=== PATIENT | male | born 1960 | race Caucasian/White ===

== ENCOUNTER 2016-05-25 11:00 | Inpatient (IN) | payer MEDICARE ==
[2016-05-25] MEDS ORDERED: NITROGLYCERIN OINT 1 INCH/GM PACKET TOPICAL STA (11:13)
[2016-05-25] MEDS ORDERED: ASPIRIN 81 MG CHEW PO STA (11:13)
--- NOTE | 2016-05-25 11:16 | ED ---
General Adult HPI - General Chief complaint: Chest Pain Stated complaint: chest pain Time Seen by Provider: 05/25/16 11:02 Source: patient, EMS, RN notes reviewed Mode of arrival: EMS Limitations: no limitations - History of Present Illness Initial comments: Patient is a pleasant 55-year-old male presenting to the emergency department chest discomfort. Onset of symptoms was around an hour and a half ago. Discomfort was fairly intense however now is mild rated 3/10. Discomfort felt like pressure. There was some mild associated dyspnea and sweating. No nausea. Patient has had similar symptoms previously however not as severe. Patient does get mild symptoms frequently. Patient has seen his doctor previously and was told he has congestive heart failure. Patient has not seen a doctor recently. - Related Data Home Medications Medication Instructions Recorded Confirmed No Known Home Medications [No 09/21/13 05/25/16 Known Home Medications] Allergies Allergy/AdvReac Type Severity Reaction Status Date / Time No Known Allergies Allergy Verified 05/25/16 11:45 Review of Systems ROS Statement: Those systems with pertinent positive or pertinent negative responses have been documented in the HPI. ROS Other: All systems not noted in ROS Statement are negative. Constitutional: Denies: fever Eyes: Denies: eye pain ENT: Denies: ear pain Respiratory: Reports: dyspnea (Resolved). Denies: cough Cardiovascular: Reports: chest pain Endocrine: Denies: fatigue Gastrointestinal: Denies: abdominal pain, nausea Genitourinary: Denies: dysuria Musculoskeletal: Denies: back pain Skin: Denies: rash Neurological: Denies: weakness Past Medical History Past Medical History: Heart Failure, COPD History of Any Multi-Drug Resistant Organisms: None Reported Past Surgical History: No Surgical Hx Reported Past Psychological History: No Psychological Hx Reported Smoking Status: Former smoker Past Alcohol Use History: None Reported Past Drug Use History: None Reported General Exam Limitations: no limitations General appearance: alert, obese Head exam: Present: atraumatic Eye exam: Present: normal appearance, PERRL ENT exam: Present: normal oropharynx Neck exam: Present: normal inspection Respiratory exam: Present: normal lung sounds bilaterally. Absent: chest wall tenderness Cardiovascular Exam: Present: regular rate, normal rhythm Expanded Peripheral pulses: 2+: Radial (R), Radial (L), Dorsalis Pedis (R), Dorsalis Pedis (L) GI/Abdominal exam: Present: soft. Absent: tenderness Extremities exam: Present: normal inspection. Absent: pedal edema, calf tenderness Neurological exam: Present: alert Psychiatric exam: Present: normal affect, normal mood Skin exam: Absent: rash Course Vital Signs 05/25/16 05/25/16 11:02 11:32 Temperature 97.1 F L Pulse Rate 79 73 Respiratory 20 18 Rate Blood Pressure 147/75 152/88 O2 Sat by Pulse 98 99 Oximetry EKG Findings - EKG Comments: EKG Findings:: Normal sinus rhythm at 74. MN 160. QRS 88. QT 402. QTC 446. Normal axis. Normal QRS. Normal ST-T. Medical Decision Making - Medical Decision Making Patient reexamined and resting comfortably in bed. Patient and family updated on results and plan. Case was discussed in detail with Dr. Pickens, who will admit for hospital call. Admission orders written. Cardiology consult placed. IV heparin started. - Lab Data Result diagrams: 05/25/16 11:06 05/25/16 11:06 Lab Results 05/25/16 05/25/16 05/25/16 Range/Units 11:06 11:06 11:06 WBC 7.8 (3.8-10.6) k/uL RBC 4.74 (4.30-5.90) m/uL Hgb 14.6 (13.0-17.5) gm/dL Hct 43.5 (39.0-53.0) % MCV 91.6 (80.0-100.0) fL MCH 30.8 (25.0-35.0) pg MCHC 33.6 (31.0-37.0) g/dL RDW 13.5 (11.5-15.5) % Plt Count 289 (150-450) k/uL Neutrophils % 42 % Lymphocytes % 44 % Monocytes % 6 % Eosinophils % 3 % Basophils % 1 % Neutrophils # 3.3 (1.3-7.7) k/uL Lymphocytes # 3.4 (1.0-4.8) k/uL Monocytes # 0.5 (0-1.0) k/uL Eosinophils # 0.2 (0-0.7) k/uL Basophils # 0.1 (0-0.2) k/uL PT (9.0-12.0) sec INR (<1.1) APTT (22.0-30.0) sec Sodium 138 (137-145) mmol/L Potassium 4.7 (3.5-5.1) mmol/L Chloride 105 (98-107) mmol/L Carbon Dioxide 24 (22-30) mmol/L Anion Gap 9 mmol/L BUN 16 (9-20) mg/dL Creatinine 0.75 (0.66-1.25) mg/dL Est GFR (MDRD) Af Amer >60 (>60 ml/min/1.73 sqM) Est GFR (MDRD) Non-Af >60 (>60 ml/min/1.73 sqM) Glucose 107 H (74-99) mg/dL Calcium 9.0 (8.4-10.2) mg/dL Magnesium 2.2 (1.6-2.3) mg/dL Total Bilirubin 0.6 (0.2-1.3) mg/dL AST 17 (17-59) U/L ALT 30 (21-72) U/L Alkaline Phosphatase 64 (38-126) U/L Total Creatine Kinase 479 H (55-170) U/L CK-MB (CK-2) 5.3 H* (0.0-2.4) ng/mL CK-MB (CK-2) Rel Index 1.1 Troponin I <0.012 (0.000-0.034) ng/mL NT-Pro-B Natriuret Pep pg/mL Total Protein 6.8 (6.3-8.2) g/dL Albumin 3.6 (3.5-5.0) g/dL 05/25/16 05/25/16 Range/Units 11:06 11:06 WBC (3.8-10.6) k/uL RBC (4.30-5.90) m/uL Hgb (13.0-17.5) gm/dL Hct (39.0-53.0) % MCV (80.0-100.0) fL MCH (25.0-35.0) pg MCHC (31.0-37.0) g/dL RDW (11.5-15.5) % Plt Count (150-450) k/uL Neutrophils % % Lymphocytes % % Monocytes % % Eosinophils % % Basophils % % Neutrophils # (1.3-7.7) k/uL Lymphocytes # (1.0-4.8) k/uL Monocytes # (0-1.0) k/uL Eosinophils # (0-0.7) k/uL Basophils # (0-0.2) k/uL PT 10.2 (9.0-12.0) sec INR 1.0 (<1.1) APTT 23.7 (22.0-30.0) sec Sodium (137-145) mmol/L Potassium (3.5-5.1) mmol/L Chloride (98-107) mmol/L Carbon Dioxide (22-30) mmol/L Anion Gap mmol/L BUN (9-20) mg/dL Creatinine (0.66-1.25) mg/dL Est GFR (MDRD) Af Amer (>60 ml/min/1.73 sqM) Est GFR (MDRD) Non-Af (>60 ml/min/1.73 sqM) Glucose (74-99) mg/dL Calcium (8.4-10.2) mg/dL Magnesium (1.6-2.3) mg/dL Total Bilirubin (0.2-1.3) mg/dL AST (17-59) U/L ALT (21-72) U/L Alkaline Phosphatase (38-126) U/L Total Creatine Kinase (55-170) U/L CK-MB (CK-2) (0.0-2.4) ng/mL CK-MB (CK-2) Rel Index Troponin I (0.000-0.034) ng/mL NT-Pro-B Natriuret Pep 21 pg/mL Total Protein (6.3-8.2) g/dL Albumin (3.5-5.0) g/dL - Radiology Data Radiology results: image reviewed (Chest x-ray shows no acute process) Critical Care Time Critical Care Time: Yes Total Critical Care Time: 31 Disposition Clinical Impression: Unstable angina pectoris Disposition: ADMITTED IP TO THIS [facility] Condition: Serious
[2016-05-25 11:28] LABS: Basophils # (A) 0.1 k/uL (0-0.2); Basophils % (A) 1 %; Eosinophils # (A) 0.2 k/uL (0-0.7); Eosinophils % (A) 3 %; HCT 43.5 % (39.0-53.0); HDW 2.34; HGB 14.6 gm/dL (13.0-17.5); Luc # (Auto) 0.27; Luc % (Auto) 3; Lymphocytes # (A) 3.4 k/uL (1.0-4.8); Lymphocytes % (A) 44 %; MCH 30.8 pg (25.0-35.0); MCHC 33.6 g/dL (31.0-37.0); MCV 91.6 fL (80.0-100.0); Mean Platelet Volume 6.9; Monocytes # (A) 0.5 k/uL (0-1.0); Monocytes % (A) 6 %; Neutrophils # (A) 3.3 k/uL (1.3-7.7); Neutrophils % (A) 42 %; RBC 4.74 m/uL (4.30-5.90); RDW 13.5 % (11.5-15.5); WBC 7.8 k/uL (3.8-10.6)
--- NOTE | 2016-05-25 11:32 | XR ---
EXAMINATION TYPE: XR chest 2V DATE OF EXAM: 05/25/2016 11:25 AM COMPARISON: Prior chest x-ray 15 March 2013 HISTORY: Chest pain, shortness of breath, congestive heart failure TECHNIQUE: Frontal and lateral views of the chest are obtained. FINDINGS: There is no focal air space opacity, pleural effusion, or pneumothorax seen. The cardiac silhouette size is within normal limits. There are overlying cardiac leads. Patient is rotated. Line ar focus of increased attenuation is stable in the substernal location compatible with scar. The osse ous structures are intact. IMPRESSION: No acute cardiopulmonary process.
[2016-05-25 11:40] LABS: Partial Thromboplastin Time 23.7 sec (22.0-30.0); Prothrombin Time 10.2 sec (9.0-12.0)
[2016-05-25 11:42] LABS: ALT 30 U/L (21-72); AST 17 U/L (17-59); Alkaline Phosphatase 64 U/L (38-126); Anion Gap 9 mmol/L; Blood Urea Nitrogen 16 mg/dL (9-20); Carbon Dioxide 24 mmol/L (22-30); Chloride 105 mmol/L (98-107); Glucose 107 mg/dL (74-99); Magnesium 2.2 mg/dL (1.6-2.3); Non-African American GFR(MDRD) >60 (>60 ml/min/1.73 sqM); Potassium 4.7 mmol/L (3.5-5.1); Sodium 138 mmol/L (137-145); Total Bilirubin 0.6 mg/dL (0.2-1.3); Total Protein 6.8 g/dL (6.3-8.2)
[2016-05-25 11:52] LABS: Creatine Kinase 479 U/L (55-170)
[2016-05-25 12:06] LABS: Troponin I <0.012 ng/mL (0.000-0.034)
[2016-05-25 12:13] LABS: Creatine Kinase MB 5.3 ng/mL (0.0-2.4)
[2016-05-25] MEDS ORDERED: HEPARIN SODIUM,PORCINE 5,000 UNIT/ML 1 ML VIAL IV ONE (12:34)
[2016-05-25] MEDS ORDERED: NITROGLYCERIN SL TABS 0.4 MG TAB SUBLINGUAL PRN (12:34)
[2016-05-25] MEDS ORDERED: HEPARIN SODIUM,PORCINE/D5W PMX 25,000 UNIT in DEXTROSE/WATER 1 500ML.BAG IV SCH (12:45)
[2016-05-25] MEDS: NITROGLYCERIN OINT 1 INCH/GM PACKET TOPICAL SCH (18:27)
[2016-05-25 18:46] LABS: Creatine Kinase 392 U/L (55-170)
[2016-05-25 19:00] LABS: Troponin I <0.012 ng/mL (0.000-0.034)
[2016-05-25 19:01] LABS: Creatine Kinase MB 4.4 ng/mL (0.0-2.4)
[2016-05-25] MEDS: HEPARIN SODIUM,PORCINE 5,000 UNIT/ML 1 ML VIAL IV PRN (19:57)
[2016-05-25] MEDS ORDERED: ACETAMINOPHEN TAB 325 MG TAB PO PRN (20:54)
[2016-05-26 01:56] LABS: Creatine Kinase 290 U/L (55-170)
[2016-05-26 02:07] LABS: Troponin I <0.012 ng/mL (0.000-0.034)
[2016-05-26 02:12] LABS: Creatine Kinase MB 3.9 ng/mL (0.0-2.4)
[2016-05-26] MEDS: HEPARIN SODIUM,PORCINE 5,000 UNIT/ML 1 ML VIAL IV PRN (02:28)
[2016-05-26] MEDS: NITROGLYCERIN OINT 1 INCH/GM PACKET TOPICAL SCH ×2 (03:30→05:52)
[2016-05-26 08:37] LABS: Mean Platelet Volume 7.1
[2016-05-26] MEDS ORDERED: ASPIRIN 325 MG TAB PO SCH (09:00)
--- NOTE | 2016-05-26 09:52 | CONS ---
DATE OF CONSULTATION: Mr. Quinn Ponce is a 55-year-old gentleman who states that he is disabled. He was playing on his phone when he started having chest discomfort. This is a left-sided chest discomfort. No tenderness in his chest wall. Nonradiating. No other associated symptoms. He may have had a viral infection recently. His cardiac enzymes and abnormal. CPKs are elevated, but troponins are completely normal. REVIEW OF SYSTEMS: No fever, chills, rigors. No cough or expectoration. No nausea, vomiting or no diarrhea. No hematuria, dysuria. No strokes or seizures. No skin lesions or musculoskeletal complaints. PAST MEDICAL HISTORY: He was told he had fluid around his heart. I am not sure where this information came from. He is not on any home medications. He does not have diabetes, does not have hypertension. Does not know his lipid panel. He does have morbid obesity and he states he has COPD. ALLERGIES: No known drug allergies. MEDICATIONS: None. On examination, his blood pressure is 141/92 mmHg, 146/85 mmHg. He is afebrile 98.1 degrees Fahrenheit, pulse rate 87 beats per minute, respirations normal. Head and neck examination is normal. Heart sounds S1, S2 normal. No murmurs or gallops. Abdomen is soft, nontender. Breath sounds are reduced bilaterally with no rhonchi. No crackles. Extremities are warm. No edema. EKGs were reviewed and shows normal sinus rhythm, normal cardiac intervals. IMPRESSION: 1. Atypical chest discomfort with elevated CPKs and normal troponin, normal 12-lead ECG. No evidence for acute myocardial infarction. 2. Morbid obesity. 3. Lipid panel not known at this time. 4. Blood pressure is mildly elevated, but he denies any history of hypertension. I do not see left ventricle hypertrophy on 12-lead ECG either. SUGGEST: From a cardiac standpoint, he can go home today and he will have work-up as an outpatient. His BNP is completely normal. Labs are reviewed. Hemoglobin is 14.6. Electrolytes are normal. Renal function is normal. Liver function is normal. CPKs are 479, 392, and 290. He denies alcohol use. He says he has been drinking adequate amount of fluids regularly. He was not in a very hot or heat environment. He may have had a viral infection. He is not on any medications that could cause myopathy. BNP is 21. Troponins are normal x3. Outpatient follow-up and he will go home today.
[2016-05-26 12:23] VITALS: BP 167/79; PULSE 86; RESP 18; TEMP 98.5
--- NOTE | 2016-05-26 13:52 | HP ---
DATE OF ADMISSION: Patient is a pleasant 55-year-old gentleman morbidly obese, came in with complaints of chest pain, nonexertional in nature, not associated with food. It lasted for about 1-1/2 and improved with aspirin, about 3 to 4/10 in severity, nonradiating the retrosternal area. I am not sure whether it is pressure like or sharp in nature, not sure whether it is related to food but patient did eat a few minutes before that. Patient denied any diaphoresis, nausea or shortness of breath. Patient's chest pain is nonpleuritic in nature, which completely resolved at this point of time. Patient may either have musculoskeletal chest and gastroesophageal reflux disease. I asked him if he has the chest pain again, I asked him to try proton pump inhibitor 20 mg daily before breakfast for about 14 days. ROS: All others systems were reviewed and were negative. HOME MEDICATIONS: None. ALLERGIES: No known drug allergies. PAST MEDICAL HISTORY: Significant for morbid obesity, history of chronic obstructive pulmonary disease, which is questionable. SOCIAL HISTORY: Former smoker. Denied any alcohol abuse or any drug abuse. FAMILY HISTORY: Significant for hypertension in the family. PHYSICAL EXAMINATION: Temperature 98.5, pulse 76, respiratory rate 18, blood pressure 167/79, saturating at 96% on room air. GENERAL: Morbidly obese, alert and oriented x3. HEENT: Pupils are round and equally reacting to light. EOMI. No scleral icterus. No conjunctival pallor. Normocephalic, atraumatic. No pharyngeal erythema. No thyromegaly. CARDIOVASCULAR: S1 and S2 present. No murmurs, rubs, or gallops. PULMONARY: Chest is clear to auscultation, no wheezing or crackles. ABDOMEN: Soft, nontender, nondistended, normoactive bowel sounds. No palpable organomegaly. MUSCULOSKELETAL: No joint swelling or deformity. EXTREMITIES: No cyanosis, clubbing, or pedal edema. NEUROLOGICAL: Gross neurological examination did not reveal any focal deficits. SKIN: No rashes. LABORATORY DATA: CBC, CMP, essentially within normal limits. EKG did not show any acute ST-T wave changes. Troponins are negative. LDL is 97. Chest x-ray did not show any acute abnormality. ASSESSMENT AND PLAN: 1. Chest pain appears to be atypical either musculoskeletal or gastroesophageal reflux. Management as mentioned above. Patient was evaluated by cardiology and patient was ruled out acute coronary artery syndrome and unstable angina. Patient is cleared for discharge from cardiology perspective. 2. Morbid obesity. Counseling was provided. Patient will benefit from sleep study. 3. History of chronic obstructive pulmonary disease, not in acute exacerbation. Patient will be discharged today. The patient will follow with his primary care physician in [address] Tavon German in 4 weeks. Activity as tolerated. Cardiac and low calorie diet. MTDD
== END 2016-05-26 12:22 | disposition home or self-care (01) | DRG 392 ==
LOC: EC 11:00 → 3OBS 12:33 → 3SUR 18:30 → OBSVTOIN 05-26 11:20
PROVIDERS: ADMIT Internal Medicine; ATTEND Internal Medicine
DX: K21.9 Gastro-esophageal reflux disease without esophagitis (principal); E66.01 Morbid (severe) obesity due to excess calories; J44.9 Chronic obstructive pulmonary disease, unspecified; R07.89 Other chest pain; Z68.43 Body mass index [BMI] 50.0-59.9, adult; Z87.891 Personal history of nicotine dependence; Z82.49 Family history of ischemic heart disease and other diseases of the circulatory system
CPT/HCPCS: 36415; 71020; 80053; 80061; 82550; 82553; 83735; 83880; 84443; 84484; 85025; 85049; 85610; 85730; 93005; 96365; 96366; 96374; 96376; 99291

== ENCOUNTER 2016-12-02 15:16 | Emergency (ER) | payer MEDICARE ==
--- NOTE | 2016-12-02 15:38 | XR ---
EXAMINATION TYPE: XR ankle complete LT DATE OF EXAM: 12/02/2016 CLINICAL HISTORY: Pain after stepping injury one week ago. TECHNIQUE: Frontal, lateral and oblique images of the left ankle are obtained. COMPARISON: None. FINDINGS: There is no acute fracture/dislocation evident in the left ankle. The ankle mortise appea rs within normal limits. There is small superior calcaneal spur. There is ossification near plantar fascia origin past small inferior calcaneal spur. The overlying soft tissue appears unremarkable. IMPRESSION: There is no acute fracture or dislocation in the left ankle.
--- NOTE | 2016-12-02 15:40 | ED ---
Lower Extremity Injury HPI - General Chief Complaint: Extremity Injury, Lower Stated Complaint: Ankle Injury Time Seen by Provider: 12/02/16 15:25 Source: patient, RN notes reviewed Mode of arrival: ambulatory Limitations: physical limitation - History of Present Illness Initial Comments: This is a 56-year-old male who presents to emergency department with chief complaint of left ankle injury. Patient states that on Friday evening he was stepping off of his porch when he heard a "pop" in his left ankle. Patient states that initially he experienced no pain. However, yesterday he states pain developed in his left ankle. He states the pain interferes with ambulation and is described as sharp. He states his current pain is 7/10. Patient states pain is localized to lateral aspect of ankle and is made worse with flexion and inversion. He denies any other injury or trauma. Denies fever, chills, chest pain, shortness of breath, abdominal pain, nausea or vomiting, constipation or diarrhea, dysuria or hematuria, numbness or tingling, headache or vision changes. - Related Data Home Medications Medication Instructions Recorded Confirmed No Known Home Medications [No 09/21/13 05/25/16 Known Home Medications] Allergies Allergy/AdvReac Type Severity Reaction Status Date / Time No Known Allergies Allergy Verified 12/02/16 15:28 Review of Systems ROS Statement: Those systems with pertinent positive or pertinent negative responses have been documented in the HPI. ROS Other: All systems not noted in ROS Statement are negative. Past Medical History Past Medical History: Heart Failure, COPD History of Any Multi-Drug Resistant Organisms: None Reported Past Surgical History: No Surgical Hx Reported Past Psychological History: No Psychological Hx Reported Smoking Status: Former smoker Past Alcohol Use History: None Reported Past Drug Use History: None Reported General Exam - General Exam Comments Initial Comments: General: Awake and alert, well-developed; in no apparent distress. is at bedside. HEENT: Head atraumatic, normocephalic. Pupils are equal, round and reactive to light. Extraocular movements intact. Neck: Supple. Normal ROM. Cardiovascular: Regular rate and rhythm. No murmurs, rubs or gallops. Chest symmetrical. Respiratory: Lungs clear to auscultation bilaterally. No wheezes, rales or rhonchi. Normal respiratory effort with no use of accessory muscles. Musculoskeletal: Tenderness on palpation of lateral aspect of left ankle. No bony tenderness of lateral malleolus. Mild ankle swelling. Normal ROM of ankle, however pain is elicited with dorsiflexion and inversion. Sensation is intact. Pedal pulses 2+ equal and palpable bilaterally. Skin: [place], warm and dry without rashes or lesions. Neurological: Alert and oriented x3. CN II-XII grossly intact. Speech is fluent and answers are appropriate. No focal neuro deficits. Psychiatric: Normal mood and affect. No overt signs of depression or anxiety noted. Limitations: physical limitation Course Vital Signs 12/02/16 15:26 Temperature 98.6 F Pulse Rate 89 Respiratory 18 Rate Blood Pressure 139/90 O2 Sat by Pulse 98 Oximetry Medical Decision Making - Medical Decision Making This is a 56-year-old male with chief complaint of left ankle injury. X-ray reveals no acute abnormalities including fracture or dislocation. Patient likely suffering from an ankle sprain. Findings discussed with patient who opts to have an ALTAGRACIA bandage placed for added support. Neurovascular intact. Patient is in no acute distress. He will be discharged home with contact information for follow up with Ortho as needed. Recommended rest, ice and elevation. He is in agreement to the plan and voices understanding. All questions were answered. - Radiology Data Radiology results: report reviewed Left ankle x-ray findings: There is no acute fracture/dislocation evident in the left ankle. Ankle mortise appears within normal limits. There is small superior calcaneal spur. There is ossification near plantar fascia origin past small inferior calcaneal spur. Overlying soft tissue appears unremarkable. Disposition Clinical Impression: Ankle sprain and strain Disposition: HOME SELF-CARE Condition: Good Instructions: Ankle Sprain (ED) Additional Instructions: Please follow-up with orthopedics, Dr. Díaz if no improvement in 1 week. Please take Ibuprofen 600mg q6 hours as needed for pain and inflammation. Please follow up with primary care provider within 1-2 days. Return to emergency department if symptoms should worsen or any concerns arise. Referrals: None,Stated [Primary Care Provider] - 1-2 days Geovanni Díaz MD [STAFF PHYSICIAN] - 1-2 days Time of Disposition: 15:51
[2016-12-02 15:51] VITALS: BP 139/90; PULSE 89; RESP 18; TEMP 98.6
== END 2016-12-02 15:57 | disposition home or self-care (01) ==
LOC: EC 15:16
DX: S93.402A Sprain of unspecified ligament of left ankle, initial encounter (principal); M77.32 Calcaneal spur, left foot; Z87.891 Personal history of nicotine dependence; X50.9XXA Other and unspecified overexertion or strenuous movements or postures, initial encounter
CPT/HCPCS: 99283

== ENCOUNTER 2017-03-17 19:42 | Emergency (ER) | payer MEDICARE, OTHER ==
--- NOTE | 2017-03-17 21:11 | XR ---
EXAMINATION TYPE: XR lumbar spine 2 or 3V DATE OF EXAM: 03/17/2017 CLINICAL HISTORY: Nontraumatic low back pain TECHNIQUE: Frontal and lateral views of the lumbar spine were obtained. COMPARISON: None FINDINGS: There are 5 lumbar type vertebral bodies identified. The lumbar spine shows satisfactory alignment without evidence of acute fracture or dislocation. Vertebral body heights and disk space he ights are within normal limits. Mild multilevel degenerative changes are seen as facet arthropathy th roughout the lower lumbar spine and small anterior osteophytes. The overlying soft tissue appears un remarkable. IMPRESSION: No acute fracture or malalignment is seen in the lumbar spine. Mild multilevel degenerat danyel changes of the lumbar spine. Findings are most exaggerated at the lumbosacral junction.
--- NOTE | 2017-03-17 21:45 | ED ---
General Adult HPI - General Chief complaint: Back Pain/Injury Stated complaint: lower back pain Time Seen by Provider: 03/17/17 21:18 Source: patient, family, RN notes reviewed Mode of arrival: ambulatory Limitations: no limitations - History of Present Illness Initial comments: 56 yo male presents to the ER with cc of of left-sided back pain. Patient states that this started about 3 weeks ago after he went to move symptoms still this. Patient states the pain continues. Worse to movement or twisting. Patient has also noticed some increased thirst and increased urination as well. He states is not currently follow-up with her doctor. He denies any fever chills with this any cough cold. He denies any loss by bladder function. He states that he has no other injuries the fact that he is aware of.Patient denies any recent fever, chills, shortness of breath, chest pain, abdominal pain , nausea vomiting, numbness or tingling, dysuria or hematuria, constipation or diarrhea, headaches or visual changes, or any other current symptoms. - Related Data Previous Rx's Medication Instructions Recorded Ibuprofen [Motrin] 600 mg PO Q6HR PRN #20 tab 03/17/17 Orphenadrine [Norflex] 100 mg PO Q12H #10 tablet.er 03/17/17 Allergies Allergy/AdvReac Type Severity Reaction Status Date / Time No Known Allergies Allergy Verified 03/17/17 21:31 Review of Systems ROS Statement: Those systems with pertinent positive or pertinent negative responses have been documented in the HPI. ROS Other: All systems not noted in ROS Statement are negative. Past Medical History Past Medical History: Heart Failure, COPD History of Any Multi-Drug Resistant Organisms: None Reported Past Surgical History: No Surgical Hx Reported Past Psychological History: No Psychological Hx Reported Smoking Status: Former smoker Past Alcohol Use History: None Reported Past Drug Use History: None Reported General Exam Limitations: no limitations General appearance: alert, in no apparent distress ENT exam: Present: normal exam, mucous membranes moist Neck exam: Present: normal inspection. Absent: tenderness, meningismus, lymphadenopathy Respiratory exam: Present: normal lung sounds bilaterally. Absent: respiratory distress, wheezes, rales, rhonchi, stridor Cardiovascular Exam: Present: regular rate, normal rhythm, normal heart sounds. Absent: systolic murmur, diastolic murmur, rubs, gallop, clicks Extremities exam: Present: normal inspection, full ROM, normal capillary refill. Absent: tenderness, pedal edema, joint swelling, calf tenderness Back exam: Present: normal inspection, full ROM, tenderness (left paraSpinal region), muscle spasm (left paraSpinal). Absent: rash noted Neurological exam: Present: alert, oriented X3 Psychiatric exam: Present: normal affect, normal mood Skin exam: Present: warm, dry, intact, normal color. Absent: rash Course Vital Signs 03/17/17 20:27 Temperature 97.2 F L Pulse Rate 92 Respiratory 18 Rate Blood Pressure 148/81 O2 Sat by Pulse 99 Oximetry Medical Decision Making - Medical Decision Making 56-year-old male presents emergency department with a chief complaint of left sided back pain after lifting type injury. This time x-rays reviewed and negative. Patient was found have some hematuria at this time we did discuss that he needs follow-up with his doctor regarding this predicament doctor in the area as well as urology. Other than that patient's back pain is most likely due to a lumbar muscle strain. This time we discussed we'll put him on Motrin and muscle relaxers for home. We did discuss close follow-up with his doctor we discussed return for hours all questions. Patient stated he understood he is given this plan. He'll be discharged. - Lab Data Result diagrams: 03/17/17 22:10 03/17/17 22:10 Lab Results 03/17/17 03/17/17 03/17/17 Range/Units 21:45 21:51 22:10 WBC 12.4 H (3.8-10.6) k/uL RBC 4.52 (4.30-5.90) m/uL Hgb 13.7 (13.0-17.5) gm/dL Hct 40.7 (39.0-53.0) % MCV 90.0 (80.0-100.0) fL MCH 30.3 (25.0-35.0) pg MCHC 33.6 (31.0-37.0) g/dL RDW 13.5 (11.5-15.5) % Plt Count 319 (150-450) k/uL Neutrophils % 55 % Lymphocytes % 32 % Monocytes % 6 % Eosinophils % 4 % Basophils % 1 % Neutrophils # 6.9 (1.3-7.7) k/uL Lymphocytes # 4.0 (1.0-4.8) k/uL Monocytes # 0.7 (0-1.0) k/uL Eosinophils # 0.4 (0-0.7) k/uL Basophils # 0.1 (0-0.2) k/uL Sodium (137-145) mmol/L Potassium (3.5-5.1) mmol/L Chloride (98-107) mmol/L Carbon Dioxide (22-30) mmol/L Anion Gap mmol/L BUN (9-20) mg/dL Creatinine (0.66-1.25) mg/dL Est GFR (MDRD) Af Amer (>60 ml/min/1.73 sqM) Est GFR (MDRD) Non-Af (>60 ml/min/1.73 sqM) Glucose (74-99) mg/dL POC Glucose (mg/dL) 90 (75-99) mg/dL POC Glu Pow[employer] ID Tyrone Mondragon Calcium (8.4-10.2) mg/dL Total Bilirubin (0.2-1.3) mg/dL AST (17-59) U/L ALT (21-72) U/L Alkaline Phosphatase (38-126) U/L Total Protein (6.3-8.2) g/dL Albumin (3.5-5.0) g/dL Urine Color Yellow Urine Appearance Clear (Clear) Urine pH 5.0 (5.0-8.0) Ur Specific [place] 1.017 (1.001-1.035) Urine Protein Negative (Negative) Urine Glucose (UA) Negative (Negative) Urine Ketones Negative (Negative) Urine Blood Moderate H (Negative) Urine Nitrite Negative (Negative) Urine Bilirubin Negative (Negative) Urine Urobilinogen <2.0 (<2.0) mg/dL Ur Leukocyte Esterase Negative (Negative) Urine RBC 6 H (0-5) /hpf Urine WBC 1 (0-5) /hpf Ur Squamous Epith Cells <1 (0-4) /hpf Urine Mucus Occasional H (None) /hpf 03/17/17 Range/Units 22:10 WBC (3.8-10.6) k/uL RBC (4.30-5.90) m/uL Hgb (13.0-17.5) gm/dL Hct (39.0-53.0) % MCV (80.0-100.0) fL MCH (25.0-35.0) pg MCHC (31.0-37.0) g/dL RDW (11.5-15.5) % Plt Count (150-450) k/uL Neutrophils % % Lymphocytes % % Monocytes % % Eosinophils % % Basophils % % Neutrophils # (1.3-7.7) k/uL Lymphocytes # (1.0-4.8) k/uL Monocytes # (0-1.0) k/uL Eosinophils # (0-0.7) k/uL Basophils # (0-0.2) k/uL Sodium 139 (137-145) mmol/L Potassium 4.2 (3.5-5.1) mmol/L Chloride 105 (98-107) mmol/L Carbon Dioxide 25 (22-30) mmol/L Anion Gap 9 mmol/L BUN 15 (9-20) mg/dL Creatinine 0.72 (0.66-1.25) mg/dL Est GFR (MDRD) Af Amer >60 (>60 ml/min/1.73 sqM) Est GFR (MDRD) Non-Af >60 (>60 ml/min/1.73 sqM) Glucose 92 (74-99) mg/dL POC Glucose (mg/dL) (75-99) mg/dL POC Glu [employer] Leader ID Calcium 9.1 (8.4-10.2) mg/dL Total Bilirubin 0.3 (0.2-1.3) mg/dL AST 20 (17-59) U/L ALT 26 (21-72) U/L Alkaline Phosphatase 82 (38-126) U/L Total Protein 6.5 (6.3-8.2) g/dL Albumin 3.6 (3.5-5.0) g/dL Urine Color Urine Appearance (Clear) Urine pH (5.0-8.0) Ur Specific [place] (1.001-1.035) Urine Protein (Negative) Urine Glucose (UA) (Negative) Urine Ketones (Negative) Urine Blood (Negative) Urine Nitrite (Negative) Urine Bilirubin (Negative) Urine Urobilinogen (<2.0) mg/dL Ur Leukocyte Esterase (Negative) Urine RBC (0-5) /hpf Urine WBC (0-5) /hpf Ur Squamous Epith Cells (0-4) /hpf Urine Mucus (None) /hpf - Radiology Data Radiology results: report reviewed, image reviewed Disposition Clinical Impression: Renal cyst, Strain of lumbar region, Hematuria Disposition: HOME SELF-CARE Condition: Stable Instructions: Acute Low Back Pain (ED) Additional Instructions: Please use medication as discussed. Please follow up with family doctor if symptoms have not improved over the next two days. Please return to the emergency room if your symptoms increase or worsen or for any other concerns. Prescriptions: Ibuprofen [Motrin] 600 mg PO Q6HR PRN #20 tab PRN Reason: Pain Orphenadrine [Norflex] 100 mg PO Q12H #10 tablet.er Referrals: Alexis Lewis MD [STAFF PHYSICIAN] - 1-2 days Time of Disposition: 22:43
[2017-03-17 21:54] LABS: Glucose,Whole Blood 90 mg/dL (75-99)
[2017-03-17 21:56] LABS: Appearance,Urine Clear (Clear); Bilirubin,Urine Negative (Negative); Blood,Urine Moderate (Negative); Color,Urine Yellow; Glucose,Urine (UA) Negative (Negative); Ketones,Urine Negative (Negative); Leukocyte Esterase,Urine Negative (Negative); Mucus,Urine Occasional /hpf; Nitrite,Urine Negative (Negative); Protein,Urine Negative (Negative); RBC,Urine 6 /hpf (0-5); Specific Gravity,Urine 1.017 (1.001-1.035); Squamous Epithelial Cell,Urine <1 /hpf (0-4); Urobilinogen,Urine <2.0 mg/dL (<2.0); WBC,Urine 1 /hpf (0-5)
[2017-03-17 22:22] LABS: Basophils # (A) 0.1 k/uL (0-0.2); Basophils % (A) 1 %; Eosinophils # (A) 0.4 k/uL (0-0.7); Eosinophils % (A) 4 %; HCT 40.7 % (39.0-53.0); HGB 13.7 gm/dL (13.0-17.5); Lymphocytes % (A) 32 %; MCH 30.3 pg (25.0-35.0); MCHC 33.6 g/dL (31.0-37.0); Mean Platelet Volume 6.8; Monocytes # (A) 0.7 k/uL (0-1.0); Monocytes % (A) 6 %; Neutrophils # (A) 6.9 k/uL (1.3-7.7); Neutrophils % (A) 55 %; Platelet Count 319 k/uL (150-450); RBC 4.52 m/uL (4.30-5.90); RDW 13.5 % (11.5-15.5); WBC 12.4 k/uL (3.8-10.6)
--- NOTE | 2017-03-17 22:32 | CT ---
EXAMINATION TYPE: CT abdomen pelvis wo con DATE OF EXAM: 03/17/2017 COMPARISON: 09/21/2013 HISTORY: Left flank pain. CT DLP: 2996.1 mGycm Automated exposure control for dose reduction was used. TECHNIQUE: Helical acquisition of images was performed from the lung bases through the pelvis. FINDINGS: Lung bases are clear of consolidation. There is mild subsegmental atelectasis in the lingula left upp er lobe. There is no pleural effusion. Liver spleen pancreas gallbladder appear normal. Bile ducts are not dilated. There is no adrenal mass . Kidneys have normal size and contour. There are 2 left renal cortical cysts that measure up to 3.5 cm. The ureters are not dilated. There is no hydronephrosis. There is no retroperitoneal adenopathy. There is no ascites. Appendix appears normal. Bladder is almost empty. There is no sign of a pelvic m ass. I see no bony destructive process. There is no sign of free air. There is subcutaneous edema ove r the lower lumbar spine. I see no intestinal wall thickening. There are no dilated loops. There is n o sign of a bowel obstruction. There is small umbilical hernia that contains omental fat. IMPRESSION: NO SIGN OF ACUTE ABDOMEN AND PELVIS. THERE ARE LEFT RENAL CORTICAL CYSTS THAT ARE INCREASED SLIGHTLY COMPARED TO OLD EXAM. NO EVIDENCE OF RENAL STONE OR OBSTRUCTION.
[2017-03-17 22:35] LABS: ALT 26 U/L (21-72); AST 20 U/L (17-59); Albumin 3.6 g/dL (3.5-5.0); Alkaline Phosphatase 82 U/L (38-126); Anion Gap 9 mmol/L; Blood Urea Nitrogen 15 mg/dL (9-20); Calcium 9.1 mg/dL (8.4-10.2); Carbon Dioxide 25 mmol/L (22-30); Chloride 105 mmol/L (98-107); Glucose 92 mg/dL (74-99); Potassium 4.2 mmol/L (3.5-5.1); Sodium 139 mmol/L (137-145); Total Bilirubin 0.3 mg/dL (0.2-1.3); Total Protein 6.5 g/dL (6.3-8.2)
[2017-03-17] MEDS ORDERED: ORPHENADRINE 30 MG/ML 2 ML VIAL IM STA (22:38)
[2017-03-17] MEDS ORDERED: KETOROLAC 60 MG/2 ML VIAL IM STA (22:38)
[2017-03-17 22:56] VITALS: BP 147/80; PULSE 88; RESP 20; TEMP 98.2
== END 2017-03-17 22:50 | disposition home or self-care (01) ==
LOC: EC 19:42
DX: S39.012A Strain of muscle, fascia and tendon of lower back, initial encounter (principal); N28.1 Cyst of kidney, acquired; R31.9 Hematuria, unspecified; Z87.891 Personal history of nicotine dependence; X50.0XXA Overexertion from strenuous movement or load, initial encounter; Y93.89 Activity, other specified
CPT/HCPCS: 36415; 80053; 85025; 81001; 87086; 72100; 74176; 99284; 96372 ×2; J2360; J1885

== ENCOUNTER 2017-10-29 09:43 | Emergency (ER) | payer MEDICARE, OTHER ==
[2017-10-29] MEDS ORDERED: KETOROLAC 30 MG/ML 1 ML VIAL IVP STA (09:55)
[2017-10-29] MEDS ORDERED: SODIUM CHLORIDE 0.9% 1,000 ML IV STA (09:55)
--- NOTE | 2017-10-29 09:57 | ED ---
Chest Pain HPI - General Stated Complaint: Chest pain Time Seen by Provider: 10/29/17 09:46 Source: patient, RN notes reviewed - History of Present Illness Initial Comments: This is a 57-year-old male with no prior history of heart or lung disease associated the onset over the past week of midsternal sharp chest pain. He states it kind is fleeting other times it will last all day. He does say he's been sneezing a lot lately no cough no fevers chills sweats phlegm production no radiation of the pain. He currently states he has pain is sharp and 8/10 severity and again points to the midsternal region. He denies any known injury. No other modifying factors at this time MD Complaint: chest pain - Related Data Home Medications Medication Instructions Recorded Confirmed Allergy Medicine 1 tab PO DAILY 10/29/17 10/29/17 Previous Rx's Medication Instructions Recorded Ibuprofen 800 mg PO Q6HR PRN #20 tablet 10/29/17 Allergies Allergy/AdvReac Type Severity Reaction Status Date / Time No Known Allergies Allergy Verified 10/29/17 10:46 Review of Systems ROS Statement: Those systems with pertinent positive or pertinent negative responses have been documented in the HPI. ROS Other: All systems not noted in ROS Statement are negative. EKG Findings - EKG Results: EKG: interpreted by RENUKA OCAMPO, sinus rhythm, normal axis, normal QRS, normal ST/ T, no acute changes (Normal sinus rhythm rate 77 appear interval 150 QRS duration 82 QT since QTC 42/454 this does appear to be a normal EKG) Past Medical History Past Medical History: Heart Failure, COPD History of Any Multi-Drug Resistant Organisms: None Reported Past Surgical History: No Surgical Hx Reported Past Psychological History: No Psychological Hx Reported Smoking Status: Former smoker Past Alcohol Use History: None Reported Past Drug Use History: None Reported General Exam - General Exam Comments Initial Comments: This is a well-developed well-nourished awake alert oriented 3 male who does demonstrate evidence of obesity General appearance: alert, in no apparent distress Head exam: Present: atraumatic, normocephalic, normal inspection Eye exam: Present: normal appearance, PERRL, EOMI. Absent: scleral icterus, conjunctival injection, periorbital swelling ENT exam: Present: normal exam, mucous membranes moist Neck exam: Present: normal inspection. Absent: tenderness, meningismus, lymphadenopathy Respiratory exam: Present: normal lung sounds bilaterally, chest wall tenderness (Reproducible tenderness palpation on the costal sternal margin especially on the left no step-off or crepitation). Absent: respiratory distress, wheezes, rales, rhonchi, stridor Cardiovascular Exam: Present: regular rate, normal rhythm, normal heart sounds. Absent: systolic murmur, diastolic murmur, rubs, gallop, clicks GI/Abdominal exam: Present: soft, normal bowel sounds. Absent: distended, tenderness, guarding, rebound, rigid Extremities exam: Present: normal inspection, full ROM, normal capillary refill. Absent: tenderness, pedal edema, joint swelling, calf tenderness Back exam: Present: normal inspection Neurological exam: Present: alert, oriented X3, CN II-XII intact Psychiatric exam: Present: normal affect, normal mood Skin exam: Present: warm, dry, intact, normal color. Absent: rash Course Vital Signs 10/29/17 10/29/17 10/29/17 09:54 09:55 10:55 Temperature 97.8 F 97.8 F Pulse Rate 79 79 71 Respiratory 18 18 18 Rate Blood Pressure 155/87 155/87 132/73 O2 Sat by Pulse 94 L 94 L 97 Oximetry Chest Pain MDM - MDM Reevaluation patient reveals he is feeling improved at this time x-rays are unremarkable the clinical presentation is consistent with costochondritis. Patient will be discharged on appropriate medication. He will follow-up with his doctor and return if needed Disposition Clinical Impression: Chest wall syndrome, Costalchondritis Disposition: HOME SELF-CARE Condition: Good Instructions: Costochondritis (ED) Prescriptions: Ibuprofen 800 mg PO Q6HR PRN #20 tablet PRN Reason: Pain Is patient prescribed a controlled substance at d/c from ED?: No Referrals: None,Stated [Primary Care Provider] - 1-2 days Vy Bingham MD [STAFF PHYSICIAN] - 1-2 days
[2017-10-29 09:58] VITALS: RESP 18
[2017-10-29 10:25] LABS: Basophils # (A) 0.1 k/uL (0-0.2); Basophils % (A) 1 %; Eosinophils # (A) 0.6 k/uL (0-0.7); Eosinophils % (A) 7 %; HCT 44.4 % (39.0-53.0); HGB 14.7 gm/dL (13.0-17.5); Lymphocytes # (A) 3.2 k/uL (1.0-4.8); Lymphocytes % (A) 41 %; MCHC 33.1 g/dL (31.0-37.0); MCV 90.6 fL (80.0-100.0); Mean Platelet Volume 6.9; Monocytes # (A) 0.5 k/uL (0-1.0); Monocytes % (A) 7 %; Neutrophils # (A) 3.3 k/uL (1.3-7.7); Neutrophils % (A) 42 %; Platelet Count 279 k/uL (150-450); RDW 13.4 % (11.5-15.5); WBC 7.9 k/uL (3.8-10.6)
--- NOTE | 2017-10-29 10:30 | XR ---
EXAMINATION TYPE: XR chest 2V DATE OF EXAM: 10/29/2017 COMPARISON: Chest x-ray May 25, 2016 HISTORY: History of CHF with chest pain. TECHNIQUE: Frontal and lateral views of the chest are obtained. FINDINGS: Exam is slightly suboptimal secondary to patient's large body habitus particularly lateral view. Slightly elevated left hemidiaphragm is seen. There is no new suspicious focal air space opacit y, pleural effusion, or pneumothorax identified. There is anterior lower lung linear scarring or ate lectasis redemonstrated. The cardiac silhouette size is stable and upper limits of normal. The osse ous structures are intact. IMPRESSION: No suspicious new acute cardiopulmonary process. No significant change from prior.
[2017-10-29 10:33] LABS: ALT 25 U/L (21-72); AST 22 U/L (17-59); Albumin 3.3 g/dL (3.5-5.0); Alkaline Phosphatase 64 U/L (38-126); Anion Gap 7 mmol/L; Blood Urea Nitrogen 15 mg/dL (9-20); Calcium 8.7 mg/dL (8.4-10.2); Carbon Dioxide 25 mmol/L (22-30); Chloride 108 mmol/L (98-107); Glucose 97 mg/dL (74-99); Potassium 4.6 mmol/L (3.5-5.1); Sodium 140 mmol/L (137-145); Total Bilirubin 0.4 mg/dL (0.2-1.3); Total Protein 6.2 g/dL (6.3-8.2)
[2017-10-29 10:45] LABS: Creatine Kinase 438 U/L (55-170); D-Dimer 0.4 mg/L FEU (<0.60); Partial Thromboplastin Time 23.2 sec (22.0-30.0); Prothrombin Time 9.8 sec (9.0-12.0)
[2017-10-29 10:58] LABS: Creatine Kinase MB 5.1 ng/mL (0.0-2.4); Troponin I <0.012 ng/mL (0.000-0.034)
[2017-10-29] MEDS ORDERED: fentaNYL (PF) 50 MCG/ML 2 ML AMP IV STA (11:20)
[2017-10-29] MEDS ORDERED: methylPREDNISolone SOD SUCCI 125 MG/2 ML VIAL IV STA (11:21)
[2017-10-29 11:58] VITALS: BP 122/70; PULSE 67; TEMP 97.6
== END 2017-10-29 11:58 | disposition home or self-care (01) ==
LOC: EC 09:43
DX: M94.0 Chondrocostal junction syndrome [Tietze] (principal); I50.9 Heart failure, unspecified; Z87.891 Personal history of nicotine dependence; Z79.899 Other long term (current) drug therapy; Z53.8 Procedure and treatment not carried out for other reasons
CPT/HCPCS: 99285; 36415; 93005; 85379; 83880; 80053; 82550; 82553; 83735; 84484; 85025; 85610; 85730; 71046; 96374; 96375 ×2; J2930; J3010; J1885

== ENCOUNTER 2018-09-03 15:13 | Observation (INO) | payer MEDICARE ==
--- NOTE | 2018-09-03 15:28 | ED ---
Chest Pain HPI - General Chief Complaint: Chest Pain Stated Complaint: Chest pain, blured vision, L arm numbness Time Seen by Provider: 09/03/18 15:22 Source: patient, RN notes reviewed, old records reviewed Mode of arrival: ambulatory Limitations: no limitations - History of Present Illness Initial Comments: This is a 57-year-old male the ER for evaluation of significant chest pain Today. Patient Has No Prior History of Heart Disease He Has Had a Heart Stress Test about 20 Years Ago. 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 Chest Has Persisted to Arrival in the ER, Patient Comes by EMS. Denies Recent Travel History or Sick Contacts. No Fever Cough or Congestion, Occasional Chest Pain Currently Shortness of Breath MD Complaint: chest pain -: hour(s) Onset: during exertion Pain Location: substernal, left chest Pain Radiation: LUE Severity: moderate Severity scale (1-10): 5 Quality: aching, heaviness Consistency: constant Improves With: nothing Worsens With: nothing Anginal Symptoms: diaphoresis, dyspnea Other Symptoms: palpitations Treatments Prior to Arrival: none - Related Data Home Medications Medication Instructions Recorded Confirmed Aspirin 325 mg PO QID PRN 09/03/18 09/03/18 Pseudoephedrine 12Hr [Sudafed 12Hr] 120 mg PO Q12H PRN 09/03/18 09/03/18 Allergies Allergy/AdvReac Type Severity Reaction Status Date / Time cat dander Allergy Dyspnea Verified 09/03/18 15:56 Review of Systems ROS Statement: Those systems with pertinent positive or pertinent negative responses have been documented in the HPI. ROS Other: All systems not noted in ROS Statement are negative. EKG Findings - EKG Comments: EKG Findings:: EKG shows sinus rhythm rate of 95, CT 150, QRS 80, QTC 469 Past Medical History Past Medical History: Heart Failure, COPD History of Any Multi-Drug Resistant Organisms: None Reported Past Surgical History: No Surgical Hx Reported Past Psychological History: No Psychological Hx Reported Smoking Status: Former smoker Past Alcohol Use History: None Reported Past Drug Use History: None Reported General Exam Limitations: no limitations General appearance: alert, in no apparent distress, obese Head exam: Present: atraumatic, normocephalic, normal inspection Eye exam: Present: normal appearance, PERRL, EOMI. Absent: scleral icterus, conjunctival injection, periorbital swelling ENT exam: Present: normal exam, mucous membranes moist Neck exam: Present: normal inspection. Absent: tenderness, meningismus, lymphadenopathy Respiratory exam: Present: normal lung sounds bilaterally. Absent: respiratory distress, wheezes, rales, rhonchi, stridor Cardiovascular Exam: Present: normal rhythm, tachycardia, normal heart sounds. Absent: systolic murmur, diastolic murmur, rubs, gallop, clicks GI/Abdominal exam: Present: soft, normal bowel sounds. Absent: distended, tenderness, guarding, rebound, rigid Extremities exam: Present: normal inspection, full ROM, normal capillary refill. Absent: tenderness, pedal edema, joint swelling, calf tenderness Back exam: Present: normal inspection Neurological exam: Present: alert, oriented X3, CN II-XII intact Psychiatric exam: Present: normal affect, normal mood Skin exam: Present: warm, dry, intact, normal color. Absent: rash Course Vital Signs 09/03/18 15:18 Temperature 98.6 F Pulse Rate 101 H Respiratory 22 Rate Blood Pressure 126/81 O2 Sat by Pulse 93 L Oximetry - Reevaluation(s) Reevaluation #1: 09/03/18 18:32 Medical record reviewed Reevaluation #2: 09/03/18 18:32 Patient still with occasional chest pain Chest Pain MDM - MDM 57 male the ER for evasive chest pain history of significant heart disease chest and was very specific with shortness of breath and diaphoresis will admit for cardiology observation Critical Care Time Critical Care Time: Yes Total Critical Care Time: 31 Disposition Clinical Impression: Unstable angina pectoris, Chest pain, Atypical chest pain Disposition: ADMITTED IP TO THIS [facility] Condition: Undetermined Instructions (If sedation given, give patient instructions): Chest Pain (ED) Is patient prescribed a controlled substance at d/c from ED?: No Referrals: Houston Canales MD [Primary Care Provider] - 1-2 days
--- NOTE | 2018-09-03 16:12 | XR ---
EXAMINATION TYPE: XR chest 2V DATE OF EXAM: 09/03/2018 COMPARISON: Prior chest x-ray 10/29/2017 HISTORY: Chest pain TECHNIQUE: Frontal and lateral views of the chest are obtained. FINDINGS: There is no focal air space opacity, pleural effusion, or pneumothorax seen. The cardiac silhouette size is within normal limits. The osseous structures are intact. There are overlying car diac leads. Patient is rotated. IMPRESSION: No acute cardiopulmonary process.
[2018-09-03 16:16] LABS: ALT 29 U/L (21-72); AST 33 U/L (17-59); African American GFR (CKD) >90 (>60 ml/min/1.73 sqM); Albumin 3.8 g/dL (3.5-5.0); Alkaline Phosphatase 59 U/L (38-126); Anion Gap 7 mmol/L; Blood Urea Nitrogen 15 mg/dL (9-20); Calcium 9.2 mg/dL (8.4-10.2); Carbon Dioxide 27 mmol/L (22-30); Chloride 107 mmol/L (98-107); Glucose 104 mg/dL (74-99); Magnesium 2.2 mg/dL (1.6-2.3); Potassium 4.4 mmol/L (3.5-5.1); Sodium 141 mmol/L (137-145); Total Bilirubin 0.3 mg/dL (0.2-1.3); Total Protein 6.6 g/dL (6.3-8.2)
[2018-09-03 16:17] LABS: Basophils % (A) 0 %; Eosinophils # (A) 0.4 k/uL (0-0.7); Eosinophils % (A) 4 %; HCT 41.7 % (39.0-53.0); HGB 13.5 gm/dL (13.0-17.5); Lymphocytes # (A) 2.7 k/uL (1.0-4.8); Lymphocytes % (A) 28 %; MCH 29.4 pg (25.0-35.0); MCHC 32.4 g/dL (31.0-37.0); MCV 90.7 fL (80.0-100.0); Mean Platelet Volume 6.8; Monocytes # (A) 0.8 k/uL (0-1.0); Monocytes % (A) 8 %; Neutrophils # (A) 5.6 k/uL (1.3-7.7); Neutrophils % (A) 58 %; Platelet Count 297 k/uL (150-450); RBC 4.59 m/uL (4.30-5.90); RDW 13.2 % (11.5-15.5); WBC 9.7 k/uL (3.8-10.6)
[2018-09-03 16:18] LABS: INR 0.9 (<1.2); Partial Thromboplastin Time 22.1 sec (22.0-30.0); Prothrombin Time 9.8 sec (9.0-12.0)
[2018-09-03 16:58] LABS: D-Dimer 0.64 mg/L FEU (<0.60)
[2018-09-03] MEDS ORDERED: IPRATROPIUM-ALBUTEROL 3 ML NEB INHALATION STA (17:05)
--- NOTE | 2018-09-03 18:19 | CT ---
EXAMINATION TYPE: CT angio chest DATE OF EXAM: 09/03/2018 5:57 PM COMPARISON: 02/28/2011 HISTORY: Diffuse chest pain. CT DLP: 865.5 mGycm Automated exposure control for dose reduction was used. CONTRAST: CTA scan of the thorax is performed with IV Contrast, patient injected with 100 mL of Isovue 370, pul monary embolism protocol. . There are 3-D post processed images. FINDINGS: There is no evidence of mediastinal adenopathy. Thoracic aorta is intact. There are no hilar masses. There is no sign of thoracic aortic aneurysm or dissection. Heart size is normal. There is no pericar dial effusion. There is mild subpleural interstitial density in the posterior lung chaudhari. There is no evidence of p ulmonary mass. There is no pleural effusion. Upper abdominal soft tissues are intact. The bony thorax is intact. I see no filling defects in the pulmonary arteries. IMPRESSION: NO EVIDENCE OF PULMONARY EMBOLISM. MINIMAL SUBPLEURAL INTERSTITIAL DENSITY CONSISTENT WITH MILD FIBRO SIS UNCHANGED.
[2018-09-03] MEDS ORDERED: ASPIRIN 81 MG PO STA (18:30)
[2018-09-03] MEDS ORDERED: NITROGLYCERIN SL TABS 0.4 MG TAB SUBLINGUAL PRN (18:30)
[2018-09-03] MEDS ORDERED: ASPIRIN 325 MG TAB PO PRN (18:59)
[2018-09-03] MEDS: METOPROLOL TARTRATE 25 MG TAB PO SCH (20:53)
--- NOTE | 2018-09-03 23:21 | HP ---
HISTORY AND PHYSICAL CHIEF COMPLAINT: Chest pain. HISTORY OF PRESENT ILLNESS: This is the first admission for this 57-year-old obese white male. 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 He became diaphoretic and short of breath, but he was not nauseated. He came to emergency room where his evaluation was negative, but it was felt that he should stay for observation and further studies to rule out IA. REVIEW OF SYSTEMS: He has had no syncope, seizures, headaches, neurologic problems, change in vision or hearing, cough, hemoptysis, sputum production, history of hypertension, palpitations, murmurs, rheumatic fever, orthopnea, PND, abdominal pain, nausea, vomiting, hematemesis, melena, hematochezia, colitis, diverticulosis, diverticulitis, hemorrhoids, jaundice, hepatitis, cirrhosis, hematuria, renal failure, frequency, urgency, dysuria, nocturia, incontinence, diabetes, etc. Past medical history, family history, personal and social histories are otherwise unremarkable. He has not had surgery. There is a significant piece of history in that his father of an acute IA around 60. He does not smoke or drink. PHYSICAL EXAMINATION: Blood pressure 126/81 with a pulse of 101, respiration 22, and temperature 98.6. In general, he appeared to be overweight and in no acute distress. Skin: Skin color is normal. Skin is warm, dry. Lymph nodes are not enlarged. Head, ears, eyes, nose, mouth, and throat were normal. Neck veins not distended. Thyroid is not enlarged. Chest is clear. Cardiac exam demonstrated normal sinus rhythm with no murmurs or extra sounds. The abdomen is protuberant, soft, nontender. Extremities are normal. Neurologically he is intact. IMPRESSION: 1. Chest pain. 2. Family history of heart disease. 3. Obesity. PLAN: 1. Bed rest. 2. IV fluids. 3. Serial EKGs and enzymes. 4. Consult with Cardiology. MMODL / IJN: [id number] /
[2018-09-04 03:52] LABS: Cholesterol 170 mg/dL (<200); HDL Cholesterol 41 mg/dL (40-60); LDL Cholesterol,Calculated 108 mg/dL (0-99); Triglycerides 104 mg/dL (<150)
[2018-09-04] MEDS ORDERED: DOBUTamine DRIP for NUC MED 500 MG in DEXTROSE/WATER 1 250ML.BAG IV ONE (06:43)
[2018-09-04] MEDS ORDERED: SODIUM CHLORIDE 0.9% 1,000 ML IV SCH (06:45)
--- NOTE | 2018-09-04 07:18 | CONS ---
CONSULTATION Quinn Ponce is a 57-year-old morbidly obese patient who came into the hospital with with complaints of having some chest pressure. He was cutting the lawn. 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 He took a pause, rested for a while. The symptoms went away and then he continued to do the exercise and then he had more discomfort. With these symptoms, he came into the hospital. He has had a stress test 20 years ago that was unremarkable. At the time of my evaluation, he is resting comfortably without symptoms. He is obese, weighs over 350 pounds. He has no hypertension or diabetes. He apparently smoked heavily and is disabled with COPD according to the patient. PAST MEDICAL HISTORY: Unremarkable for any hypertension, diabetes, myocardial infarction. He does have history of smoking and has COPD. MEDICATIONS: At home, aspirin and Sudafed p.r.n. ALLERGIES: No known drug allergies. The patient's D-dimer was elevated, so a CT angiography was performed, which was unremarkable for any pulmonary embolism. At the time of my evaluation, he is resting comfortably without symptoms. LABORATORY DATA: Suggests that all 3 troponins are normal. LDL cholesterol is 108. His laboratory data are otherwise unremarkable. PHYSICAL EXAMINATION: Blood pressure is 130/70, pulse rate is 70 per minute, regular. HEENT: Unremarkable. Fundus was not examined by me. Neck is supple. No JVD. I do not hear a carotid bruit. There is no thyromegaly. Heart exam reveals S1, S2 heard normally without a rub, murmur or gallop. Lungs are clear. Abdomen is soft, nontender. Lower extremities reveal normal pulses. No edema. Central nervous system is normal. EKG revealed sinus mechanism, no acute changes. IMPRESSION: 1. Probable angina pectoris in a patient with exertional chest symptoms. 2. Obesity. 3. Past history of smoking with chronic obstructive pulmonary disease. RECOMMENDATIONS: I am recommending that we perform an echocardiogram and a dobutamine echo. I will place him on subcu heparin. I will start him on 0.9 saline at 75 mL/hour. If the dobutamine echo is unremarkable, he can be discharged. I discussed my thoughts in detail with the patient. Thank you very much for the consult. MMODL / IJN: [id number] /
[2018-09-04] MEDS ORDERED: ASPIRIN 325 MG TAB PO SCH (09:00)
[2018-09-04] MEDS ORDERED: HEPARIN SODIUM,PORCINE 5,000 UNIT/ML 1 ML VIAL SQ SCH (09:00)
[2018-09-04] MEDS ORDERED: ATORVASTATIN 80 MG TAB PO SCH (09:00)
[2018-09-04 11:40] VITALS: BP 139/93; PULSE 78; RESP 18; TEMP 97.8
[2018-09-04] MEDS: METOPROLOL TARTRATE 25 MG TAB PO SCH (11:59)
[2018-09-04 13:36] LABS: Hemoglobin A1C 6.1 % (4.0-6.0)
--- NOTE | 2018-09-04 13:42 | ECHOS ---
STRESS ECHOCARDIOGRAM DATE OF SERVICE: 09/04/2018 INDICATIONS: Chest pain. MEDICATIONS: Aspirin. BASELINE HEART RATE: 73 BASELINE BLOOD PRESSURE: 148/88 MAXIMUM HEART RATE: 142 MAXIMUM BLOOD PRESSURE: 167/67 85% MPHR: 139 100% MPHR: 163 METS: MAXIMUM STAGE REACHED: TOTAL EXERCISE TIME: CLINICAL INFORMATION: Baseline EKG revealed normal sinus rhythm without significant ST-T changes. With dobutamine infusion as per protocol, heart rate went up to 142 beats per minute. Patient did not have any significant symptoms. EKG did not reveal any ST-segment changes to indicate ischemia. Rare isolated PVCs were noted. By EKG criteria, this is unremarkable dobutamine stress test without any ST-segment changes to indicate ischemia. Baseline echo images revealed normal wall motion and wall thickening of all segments. With dobutamine infusion as per protocol, there was progressive increase in contractility of all segments noted suggesting that there is no evidence of any stress- induced ischemia on this study. FINAL IMPRESSION: 1. This is a negative dobutamine stress test by EKG criteria with rare isolated PVCs and no evidence of any ST-segment changes. Patient did not have any significant symptoms. 2. Normal dobutamine stress echocardiogram. MMODL / IJN: [id number] /
--- NOTE | 2018-09-04 23:25 | DS ---
DISCHARGE SUMMARY CHIEF COMPLAINT: Chest pain. HISTORY OF PRESENT ILLNESS AND PHYSICAL EXAM: Details of this man's history and physical can be found in the initial workup. COURSE IN HOSPITAL: After admission he was placed on bedrest and started on intravenous fluids and serial EKGs and enzymes. These were all normal. He was seen by Cardiology and he was taken for a stress test which was negative. It was felt that he could be discharged. He will follow up in a week. He will be on no medications. FINAL DIAGNOSES: 1. Chest pain, noncardiac. 2. Obesity. OPERATIONS: None. CONSULTATIONS: Cardiology. He is improved. MMODL / IJN: [id number] /
== END 2018-09-04 14:20 | disposition home or self-care (01) ==
LOC: EC 15:13 → 1SOBS 18:30
PROVIDERS: ADMIT Family Medicine; ATTEND Family Medicine
DX: R07.89 Other chest pain (principal); R20.0 Anesthesia of skin; H53.8 Other visual disturbances; R00.2 Palpitations; R79.89 Other specified abnormal findings of blood chemistry; R61 Generalized hyperhidrosis; E66.01 Morbid (severe) obesity due to excess calories; Z68.43 Body mass index [BMI] 50.0-59.9, adult; Z87.891 Personal history of nicotine dependence; J44.9 Chronic obstructive pulmonary disease, unspecified; J30.81 Allergic rhinitis due to animal (cat) (dog) hair and dander; Z79.82 Long term (current) use of aspirin; Z82.49 Family history of ischemic heart disease and other diseases of the circulatory system
CPT/HCPCS: 99291; 36415; 93005; 85379; 83880; 80061; 80053; 83690; 83735; 84484 ×2; 85025; 85610; 85730; 83036; 71046; 71275; G0378 ×2; C8929; C8930; J1250; Q9967; 93306; 93351

== ENCOUNTER 2022-02-28 08:16 | Emergency (ER) | payer MEDICARE ==
[2022-02-28] MEDS ORDERED: SODIUM CHLORIDE 0.9% 1,000 ML IV STA (08:38)
[2022-02-28] MEDS ORDERED: HYDROmorphone 1 MG/ML 1 ML SYRINGE IVP STA (08:39)
--- NOTE | 2022-02-28 08:43 | ED ---
General Adult HPI - General Chief complaint: Abdominal Pain Stated complaint: Abd pain Time Seen by Provider: 02/28/22 08:34 Source: patient, family, RN notes reviewed Mode of arrival: wheelchair Limitations: no limitations - History of Present Illness Initial comments: Patient is a pleasant 61-year-old male presenting to the emergency Department with abdominal discomfort. Onset of symptoms was 4 AM. Symptoms woke him from sleep. Discomfort is rated 6 or 7/10. Patient denies radiation. Discomfort is right abdomen and epigastrium. No nausea or vomiting. No fever. No constipation or diarrhea. Patient did have a small bowel movement without change in symptoms. Patient has been urinating slightly less than normal. - Related Data Home Medications Medication Instructions Recorded Confirmed Loratadine [Claritin] 10 mg PO DAILY 02/28/22 02/28/22 Tirzepatide [Mounjaro] 2.5 mg SQ DIRECTED 02/28/22 02/28/22 Previous Rx's Medication Instructions Recorded Aspirin 81 mg PO DAILY 30 Days #30 tab 02/06/21 Metoprolol Tartrate [Lopressor] 25 mg PO DAILY 30 Days #30 tab 02/06/21 amLODIPine [Norvasc] 5 mg PO DAILY 30 Days #30 tab 02/06/21 Ketorolac [Toradol] 10 mg PO Q6HR PRN #15 tab 02/28/22 Metoclopramide HCl [Reglan] 10 mg PO Q6HR PRN #15 tablet 02/28/22 Tamsulosin [Flomax] 0.4 mg PO DAILY #14 cap 02/28/22 Allergies Allergy/AdvReac Type Severity Reaction Status Date / Time cat dander Allergy Dyspnea Verified 02/28/22 11:35 Review of Systems ROS Statement: Those systems with pertinent positive or pertinent negative responses have been documented in the HPI. ROS Other: All systems not noted in ROS Statement are negative. Constitutional: Denies: fever Eyes: Denies: eye pain ENT: Denies: ear pain Respiratory: Denies: cough Cardiovascular: Denies: chest pain Gastrointestinal: Reports: as per HPI, abdominal pain Genitourinary: Denies: dysuria Musculoskeletal: Denies: back pain Skin: Denies: rash Neurological: Denies: weakness Past Medical History Past Medical History: Chest Pain / Angina, Heart Failure, COPD, GERD/Reflux, Hyperlipidemia, Hypertension, Pneumonia, Renal Disease Additional Past Medical History / Comment(s): Pt states past "irregular heart beat that was treated by shocking my heart and then it went back to regular rhythm"/ states this was done years ago at [facility], [place], operated by [facility], nephrolithiasis/pt passed stone on his own, occasional back pain. History of Any Multi-Drug Resistant Organisms: None Reported Past Surgical History: Tonsillectomy Additional Past Surgical History / Comment(s): ?Cardioversion, colonoscopy Past Anesthesia/Blood Transfusion Reactions: No Reported Reaction Past Psychological History: No Psychological Hx Reported Smoking Status: Former smoker - Past Family History Father Family Medical History: Myocardial Infarction (SD) Additional Family Medical History / Comment(s): Father of a SD at the age of 60 yrs. Mother Family Medical History: Cancer Additional Family Medical History / Comment(s): Mother is . She had lung CA General Exam Limitations: no limitations General appearance: alert, in no apparent distress Head exam: Present: atraumatic, normocephalic Eye exam: Present: normal appearance Neck exam: Present: normal inspection Respiratory exam: Present: normal lung sounds bilaterally Cardiovascular Exam: Present: regular rate, normal rhythm Expanded Peripheral pulses: 2+: Posterior Tibialis (R), Posterior Tibialis (L), Dorsalis Pedis (R), Dorsalis Pedis (L) GI/Abdominal exam: Present: soft, tenderness (Moderate tenderness right abdomen and epigastrium), normal bowel sounds. Absent: distended, guarding, rebound, rigid, pulsatile mass Extremities exam: Present: normal inspection Neurological exam: Present: alert Psychiatric exam: Present: normal affect, normal mood Skin exam: Present: normal color Course Vital Signs 02/28/22 02/28/22 02/28/22 08:24 09:46 11:30 Temperature 97.5 F L 97.8 F Pulse Rate 88 85 84 Respiratory 16 18 18 Rate Blood Pressure 161/83 147/87 122/79 O2 Sat by Pulse 98 97 98 Oximetry Medical Decision Making - Medical Decision Making Was pt. sent in by a medical professional or institution (, PA, FEED INSPECTION SUPERVISOR, urgent care, hospital, or fci...) When possible be specific @ -No Did you speak to anyone other than the patient for history (EMS, parent, family, police, friend...)? What history was obtained from this source @ -No Did you review nursing and triage notes (agree or disagree)? Why? @ -I reviewed and agree with nursing and triage notes Were old charts reviewed (outside hosp., previous admission, EMS record, old EKG, old radiological studies, urgent care reports/EKG's, fci records)? Report findings @ -No old charts were reviewed Differential Diagnosis (chest pain, altered mental status, abdominal pain women, abdominal pain men, vaginal bleeding, weakness, fever, dyspnea, syncope, headache, dizziness, GI bleed, back pain, seizure, CVA, palpatations, mental health)? @ -Differential Abdominal Pain Men: Appendicitis, cholecystitis, diverticulosis, ischemic bowel, pancreatitis, hepatitis, UTI, gastroenteritis, AAA, incarcerated hernia, bowel obstruction, constipation, inflammatory bowel, hepatitis, peptic ulcer disease, splenic infarction, perforated viscus, testicular torsion, this is not meant to be an all-inclusive list EKG interpreted by me (3pts min.). @ -As above X-rays interpreted by me (1pt min.). @ -None done CT interpreted by me (1pt min.). @ -None done U/S interpreted by me (1pt. min.). @ -None done What testing was considered but not performed or refused? (CT, X-rays, U/S, labs)? Why? @ -None What meds were considered but not given or refused? Why? @ -None Did you discuss the management of the patient with other professionals (professionals i.e. , PA, FEED INSPECTION SUPERVISOR, lab, RT, psych nurse, social services manager, substation electrician, teacher, commercial loan collection officer, senior case manager)? Give summary @ -No Was smoking cessation discussed for >3mins.? @ -No Was critical care preformed (if so, how long)? @ -No Were there social determinants of health that impacted care today? How? (Homelessness, low income, unemployed, alcoholism, drug addiction, transportation, low edu. Level, literacy, decrease access to med. care, penitentiary, rehab)? @ -No Was there de-escalation of care discussed even if they declined (Discuss DNR or withdrawal of care, Hospice)? DNR status @ -No What co-morbidities impacted this encounter? (DM, HTN, Smoking, COPD, CAD, Cancer, CVA, ARF, Chemo, Hep., AIDS, mental health diagnosis, sleep apnea, morbid obesity)? @ -None Was patient admitted / discharged? Hospital course, mention meds given and route, prescriptions, significant lab abnormalities, going to OR and other pertinent info. @ -Patient reevaluated and resting comfortably at bedside. Patient sitting up and requesting discharge home. Patient and family are updated on results and need for follow-up. Undiagnosed new problem with uncertain prognosis? @ -No Drug Therapy requiring intensive monitoring for toxicity (Heparin, Nitro, Insulin, Cardizem)? @ -No Were any procedures done? @ -No Diagnosis/symptom? @ -Ureterolithiasis Acute, or Chronic, or Acute on Chronic? @ -Acute Uncomplicated (without systemic symptoms) or Complicated (systemic symptoms)? @ -Uncomplicated Side effects of treatment? @ -No Exacerbation, Progression, or Severe Exacerbation? @ -No Poses a threat to life or bodily function? How? (Chest pain, USA, SD, pneumonia, PE, COPD, DKA, ARF, appy, cholecystitis, CVA, Diverticulitis, Homicidal, Suicidal, threat to staff... and all critical care pts) @ -Potential threat to renal function, patient will need follow-up - Lab Data Result diagrams: 02/28/22 08:48 02/28/22 08:48 Lab Results 02/28/22 02/28/22 02/28/22 Range/Units 08:48 08:48 08:48 WBC 13.8 H (3.8-10.6) k/uL RBC 4.81 (4.30-5.90) m/uL Hgb 14.6 (13.0-17.5) gm/dL Hct 43.4 (39.0-53.0) % MCV 90.2 (80.0-100.0) fL MCH 30.4 (25.0-35.0) pg MCHC 33.7 (31.0-37.0) g/dL RDW 13.1 (11.5-15.5) % Plt Count 314 (150-450) k/uL MPV 7.5 Neutrophils % 51 % Lymphocytes % 37 % Monocytes % 6 % Eosinophils % 4 % Basophils % 1 % Neutrophils # 7.0 (1.3-7.7) k/uL Lymphocytes # 5.1 H (1.0-4.8) k/uL Monocytes # 0.8 (0-1.0) k/uL Eosinophils # 0.6 (0-0.7) k/uL Basophils # 0.1 (0-0.2) k/uL PT 10.1 (9.0-12.0) sec INR 1.0 (<1.2) APTT 23.5 (22.0-30.0) sec Sodium (137-145) mmol/L Potassium (3.5-5.1) mmol/L Chloride (98-107) mmol/L Carbon Dioxide (22-30) mmol/L Anion Gap mmol/L BUN (9-20) mg/dL Creatinine (0.66-1.25) mg/dL Est GFR (CKD-EPI)AfAm (>60 ml/min/1.73 sqM) Est GFR (CKD-EPI)NonAf (>60 ml/min/1.73 sqM) Glucose (74-99) mg/dL Calcium (8.4-10.2) mg/dL Total Bilirubin (0.2-1.3) mg/dL AST (17-59) U/L ALT (4-49) U/L Alkaline Phosphatase (38-126) U/L Total Protein (6.3-8.2) g/dL Albumin (3.5-5.0) g/dL Amylase (30-110) U/L Lipase (23-300) U/L Urine Color Yellow Urine Appearance Clear (Clear) Urine pH 5.0 (5.0-8.0) Ur Specific [place] 1.024 (1.001-1.035) Urine Protein Trace H (Negative) Urine Glucose (UA) Negative (Negative) Urine Ketones Negative (Negative) Urine Blood Moderate H (Negative) Urine Nitrite Negative (Negative) Urine Bilirubin Negative (Negative) Urine Urobilinogen <2.0 (<2.0) mg/dL Ur Leukocyte Esterase Negative (Negative) Urine RBC 10 H (0-5) /hpf Urine WBC 2 (0-5) /hpf Ur Squamous Epith Cells <1 (0-4) /hpf Hyaline Casts 1 (0-2) /lpf Urine Mucus Few H (None) /hpf 02/28/22 Range/Units 08:48 WBC (3.8-10.6) k/uL RBC (4.30-5.90) m/uL Hgb (13.0-17.5) gm/dL Hct (39.0-53.0) % MCV (80.0-100.0) fL MCH (25.0-35.0) pg MCHC (31.0-37.0) g/dL RDW (11.5-15.5) % Plt Count (150-450) k/uL MPV Neutrophils % % Lymphocytes % % Monocytes % % Eosinophils % % Basophils % % Neutrophils # (1.3-7.7) k/uL Lymphocytes # (1.0-4.8) k/uL Monocytes # (0-1.0) k/uL Eosinophils # (0-0.7) k/uL Basophils # (0-0.2) k/uL PT (9.0-12.0) sec INR (<1.2) APTT (22.0-30.0) sec Sodium 136 L (137-145) mmol/L Potassium 4.6 (3.5-5.1) mmol/L Chloride 104 (98-107) mmol/L Carbon Dioxide 24 (22-30) mmol/L Anion Gap 8 mmol/L BUN 26 H (9-20) mg/dL Creatinine 0.85 (0.66-1.25) mg/dL Est GFR (CKD-EPI)AfAm >90 (>60 ml/min/1.73 sqM) Est GFR (CKD-EPI)NonAf >90 (>60 ml/min/1.73 sqM) Glucose 164 H (74-99) mg/dL Calcium 9.2 (8.4-10.2) mg/dL Total Bilirubin 0.6 (0.2-1.3) mg/dL AST 29 (17-59) U/L ALT 30 (4-49) U/L Alkaline Phosphatase 69 (38-126) U/L Total Protein 7.1 (6.3-8.2) g/dL Albumin 4.0 (3.5-5.0) g/dL Amylase 38 (30-110) U/L Lipase 65 (23-300) U/L Urine Color Urine Appearance (Clear) Urine pH (5.0-8.0) Ur Specific [place] (1.001-1.035) Urine Protein (Negative) Urine Glucose (UA) (Negative) Urine Ketones (Negative) Urine Blood (Negative) Urine Nitrite (Negative) Urine Bilirubin (Negative) Urine Urobilinogen (<2.0) mg/dL Ur Leukocyte Esterase (Negative) Urine RBC (0-5) /hpf Urine WBC (0-5) /hpf Ur Squamous Epith Cells (0-4) /hpf Hyaline Casts (0-2) /lpf Urine Mucus (None) /hpf - Radiology Data Radiology results: report reviewed Disposition Clinical Impression: Ureterolithiasis Disposition: HOME SELF-CARE Condition: Stable Instructions (If sedation given, give patient instructions): Kidney Stones (ED) Additional Instructions: Please do follow-up with primary care physician in the next couple of days for recheck. Please do follow-up with urology, number provided. Return for increased pain, fever, vomiting, worsening symptoms or other concerns. Prescriptions have been sent to pharmacy. Prescriptions: Tamsulosin [Flomax] 0.4 mg PO DAILY #14 cap Metoclopramide HCl [Reglan] 10 mg PO Q6HR PRN #15 tablet PRN Reason: Nausea Ketorolac [Toradol] 10 mg PO Q6HR PRN #15 tab PRN Reason: Pain Is patient prescribed a controlled substance at d/c from ED?: No Referrals: Susana Somers MD [Primary Care Provider] - 1-2 days Jj Swenson MD [STAFF PHYSICIAN] - 1-2 days Time of Disposition: 11:41
[2022-02-28 09:07] LABS: Basophils # (A) 0.1 k/uL (0-0.2); Basophils % (A) 1 %; Eosinophils # (A) 0.6 k/uL (0-0.7); Eosinophils % (A) 4 %; HCT 43.4 % (39.0-53.0); HGB 14.6 gm/dL (13.0-17.5); Lymphocytes # (A) 5.1 k/uL (1.0-4.8); Lymphocytes % (A) 37 %; MCH 30.4 pg (25.0-35.0); MCHC 33.7 g/dL (31.0-37.0); MCV 90.2 fL (80.0-100.0); Mean Platelet Volume 7.5; Monocytes # (A) 0.8 k/uL (0-1.0); Monocytes % (A) 6 %; Neutrophils % (A) 51 %; Platelet Count 314 k/uL (150-450); RBC 4.81 m/uL (4.30-5.90); RDW 13.1 % (11.5-15.5); WBC 13.8 k/uL (3.8-10.6)
[2022-02-28 09:15] LABS: Appearance,Urine Clear (Clear); Bilirubin,Urine Negative (Negative); Blood,Urine Moderate (Negative); Color,Urine Yellow; Glucose,Urine (UA) Negative (Negative); Hyaline Casts,Urine 1 /lpf (0-2); Ketones,Urine Negative (Negative); Leukocyte Esterase,Urine Negative (Negative); Mucus,Urine Few /hpf; Nitrite,Urine Negative (Negative); Partial Thromboplastin Time 23.5 sec (22.0-30.0); Protein,Urine Trace (Negative); Prothrombin Time 10.1 sec (9.0-12.0); RBC,Urine 10 /hpf (0-5); Specific Gravity,Urine 1.024 (1.001-1.035); Squamous Epithelial Cell,Urine <1 /hpf (0-4); Urobilinogen,Urine <2.0 mg/dL (<2.0); WBC,Urine 2 /hpf (0-5)
[2022-02-28 09:25] LABS: ALT 30 U/L (4-49); AST 29 U/L (17-59); African American GFR (CKD) >90 (>60 ml/min/1.73 sqM); Alkaline Phosphatase 69 U/L (38-126); Amylase 38 U/L (30-110); Anion Gap 8 mmol/L; Blood Urea Nitrogen 26 mg/dL (9-20); Calcium 9.2 mg/dL (8.4-10.2); Carbon Dioxide 24 mmol/L (22-30); Chloride 104 mmol/L (98-107); Glucose 164 mg/dL (74-99); Lipase 65 U/L (23-300); Non-African American GFR(CKD) >90 (>60 ml/min/1.73 sqM); Potassium 4.6 mmol/L (3.5-5.1); Sodium 136 mmol/L (137-145); Total Bilirubin 0.6 mg/dL (0.2-1.3); Total Protein 7.1 g/dL (6.3-8.2)
[2022-02-28 09:48] VITALS: RESP 18
--- NOTE | 2022-02-28 10:24 | CT ---
EXAMINATION TYPE: CT abdomen pelvis w con DATE OF EXAM: 02/28/2022 COMPARISON: 03/17/2017 HISTORY: ABDOMINAL PAIN CT DLP: 3472.4 mGycm Automated exposure control for dose reduction was used. CONTRAST: CT scan of the abdomen pelvis is performed with IV Contrast, patient injected with 100 ml mL of Isovu e 300. FINDINGS- LUNG BASES- No significant abnormality is appreciated. LIVER/GB- No gross abnormality is appreciated. PANCREAS- No gross abnormality is seen. SPLEEN- No gross abnormality is seen. ADRENALS- No gross abnormality is seen. KIDNEYS/BLADDER-there is mild right hydronephrosis secondary to a right UVJ calcification measuring 3 mm. Left kidney demonstrates 2 hypodense lesions measuring less than 15 Hounsfield units with the largest lesion measuring 4.6 cm compatible with cysts. BOWEL- bowel gas pattern nonspecific with no obstruction. No surrounding inflammatory changes. Diver ticulosis of the colon noted. LYMPH NODES- No greater than 1cm abdominal or pelvic lymph nodes are appreciated. OSSEOUS STRUCTURES- hypertrophic and degenerative change of the spine. Multilevel facet arthropathy noted suspected multilevel foraminal encroachment and canal stenosis. OTHER- small fat-containing periumbilical hernia. Nonspecific subcutaneous edema seen posteriorly. IMPRESSION- 1. Mild right hydronephrosis secondary to 3 mm right UVJ obstructing calculus. 2. Diverticulosis
[2022-02-28 11:34] VITALS: BP 122/79; PULSE 84; TEMP 97.8
== END 2022-02-28 12:15 | disposition home or self-care (01) ==
LOC: EC 08:16
DX: N20.1 Calculus of ureter (principal); I11.0 Hypertensive heart disease with heart failure; I50.9 Heart failure, unspecified; E78.5 Hyperlipidemia, unspecified; J44.9 Chronic obstructive pulmonary disease, unspecified; Z87.891 Personal history of nicotine dependence; Z88.8 Allergy status to other drugs, medicaments and biological substances
CPT/HCPCS: 99284; 96374; 96361 ×3; 36415; 80053; 82150; 83690; 85025; 85610; 85730; 81001; 74177; J1170

== ENCOUNTER 2023-01-17 03:32 | Observation (INO) | payer MEDICARE ==
[2023-01-17 04:02] LABS: Glucose,Whole Blood 125 mg/dL (70-110)
[2023-01-17 04:15] LABS: Basophils # (A) 0.1 k/uL (0-0.2); Basophils % (A) 1 %; Eosinophils # (A) 0.6 k/uL (0-0.7); Eosinophils % (A) 6 %; HCT 41.2 % (39.0-53.0); HGB 13.5 gm/dL (13.0-17.5); Lymphocytes # (A) 4.5 k/uL (1.0-4.8); Lymphocytes % (A) 40 %; MCH 30.4 pg (25.0-35.0); MCHC 32.8 g/dL (31.0-37.0); MCV 92.6 fL (80.0-100.0); Mean Platelet Volume 7.5; Monocytes # (A) 0.7 k/uL (0-1.0); Monocytes % (A) 7 %; Neutrophils % (A) 44 %; Platelet Count 274 k/uL (150-450); RBC 4.45 m/uL (4.30-5.90); RDW 13.2 % (11.5-15.5); WBC 11.2 k/uL (3.8-10.6)
[2023-01-17 04:26] LABS: ALT 23 U/L (4-49); AST 36 U/L (17-59); African American GFR (CKD) >90 (>60 ml/min/1.73 sqM); Albumin 3.5 g/dL (3.5-5.0); Alkaline Phosphatase 76 U/L (38-126); Anion Gap 9 mmol/L; Blood Urea Nitrogen 17 mg/dL (9-20); Carbon Dioxide 28 mmol/L (22-30); Chloride 102 mmol/L (98-107); Glucose 135 mg/dL (74-99); Magnesium 2.1 mg/dL (1.6-2.3); Non-African American GFR(CKD) >90 (>60 ml/min/1.73 sqM); Potassium 4.1 mmol/L (3.5-5.1); Sodium 139 mmol/L (137-145); Total Bilirubin 0.4 mg/dL (0.2-1.3); Total Protein 6.5 g/dL (6.3-8.2)
--- NOTE | 2023-01-17 04:45 | ED ---
Chest Pain HPI - General Chief Complaint: Chest Pain Stated Complaint: Chest Pain, Left arm numbness Time Seen by Provider: 01/17/23 04:43 Source: patient, RN notes reviewed, old records reviewed Mode of arrival: wheelchair Limitations: no limitations - History of Present Illness Initial Comments: This is a 62-year-old male to the emergency department for evaluation today. Patient since today for evaluation regards to chest pain. Chest pain right- sided chest pain shortness of breath pain of the left arm pain started 30 minutes prior to arrival here in the emergency department with chest pain and radiates down left arm. Patient has multiple medical comorbidities including COPD and heart disease with unstable angina, patient does not believe he had heart catheterization in his life but had a cardiac stress test within the past year. Patient has no recent fever cough or congestion no travel history or sick contacts MD Complaint: chest pain -: days(s) Onset: during rest Pain Location: left chest Pain Radiation: LUE Severity: moderate Severity scale (1-10): 5 Quality: tightness, aching, heaviness Consistency: constant Improves With: nothing Worsens With: nothing Anginal Symptoms: diaphoresis, dyspnea Other Symptoms: palpitations Treatments Prior to Arrival: none - Related Data Previous Rx's Medication Instructions Recorded Aspirin 81 mg PO DAILY 30 Days #30 tab 02/06/21 Metoprolol Tartrate [Lopressor] 25 mg PO DAILY 30 Days #30 tab 02/06/21 amLODIPine [Norvasc] 5 mg PO DAILY 30 Days #30 tab 02/06/21 Allergies Allergy/AdvReac Type Severity Reaction Status Date / Time cat dander Allergy Dyspnea Verified 01/17/23 06:34 Review of Systems ROS Statement: Those systems with pertinent positive or pertinent negative responses have been documented in the HPI. ROS Other: All systems not noted in ROS Statement are negative. EKG Findings - EKG Comments: EKG Findings:: EKG is sinus 75 MN 169 QRS 90 QTC 420 - EKG Results: EKG: interpreted by TERRENCE Past Medical History Past Medical History: Chest Pain / Angina, Heart Failure, COPD, GERD/Reflux, Hyperlipidemia, Hypertension, Pneumonia, Renal Disease Additional Past Medical History / Comment(s): Pt states past "irregular heart beat that was treated by shocking my heart and then it went back to regular rhythm"/ states this was done years ago at [facility], nephrolithiasis/pt passed stone on his own, occasional back pain. History of Any Multi-Drug Resistant Organisms: None Reported Past Surgical History: Tonsillectomy Additional Past Surgical History / Comment(s): ?Cardioversion, colonoscopy Past Anesthesia/Blood Transfusion Reactions: No Reported Reaction Past Psychological History: No Psychological Hx Reported Smoking Status: Former smoker Past Alcohol Use History: None Reported Past Drug Use History: None Reported - Past Family History Father Family Medical History: Myocardial Infarction ([place]) Additional Family Medical History / Comment(s): Father of a [place] at the age of 60 yrs. Mother Family Medical History: Cancer Additional Family Medical History / Comment(s): Mother is . She had lung [place] General Exam Limitations: no limitations General appearance: alert, in no apparent distress Head exam: Present: atraumatic, normocephalic, normal inspection Eye exam: Present: normal appearance, PERRL, EOMI. Absent: scleral icterus, conjunctival injection, periorbital swelling ENT exam: Present: normal exam, mucous membranes moist Neck exam: Present: normal inspection. Absent: tenderness, meningismus, lymphadenopathy Respiratory exam: Present: normal lung sounds bilaterally. Absent: respiratory distress, wheezes, rales, rhonchi, stridor Cardiovascular Exam: Present: regular rate, normal rhythm, normal heart sounds. Absent: systolic murmur, diastolic murmur, rubs, gallop, clicks GI/Abdominal exam: Present: soft, normal bowel sounds. Absent: distended, tenderness, guarding, rebound, rigid Extremities exam: Present: normal inspection, full ROM, normal capillary refill. Absent: tenderness, pedal edema, joint swelling, calf tenderness Back exam: Present: normal inspection Neurological exam: Present: alert, oriented X3, CN II-XII intact Psychiatric exam: Present: normal affect, normal mood Skin exam: Present: warm, dry, intact, normal color. Absent: rash Course Vital Signs 01/17/23 01/17/23 01/17/23 03:34 04:36 04:39 Temperature 98.1 F 98.2 F Pulse Rate 79 79 77 Respiratory 18 18 19 Rate Blood Pressure 147/75 131/71 O2 Sat by Pulse 95 98 Oximetry 01/17/23 01/17/23 01/17/23 05:00 06:00 06:21 Temperature 97.9 F 98.2 F Pulse Rate 73 80 Respiratory 18 19 Rate Blood Pressure 121/71 121/77 O2 Sat by Pulse 100 98 Oximetry - Reevaluation(s) Reevaluation #1: 01/17/23 06:31 Medical records reviewed Reevaluation #2: 01/17/23 06:31 Patient still with chest pain here in the ER Reevaluation #3: 01/17/23 06:31 Patient informed results and questions answered Reevaluation #4: 01/17/23 04:44 Was pt. sent in by a medical professional or institution (CAROL Gonzalez, TELEPHONE LINEMAN, urgent care, hospital, or jail...) When possible be specific @ -no Did you speak to anyone other than the patient for history (EMS, parent, family, police, friend...)? What history was obtained from this source @ -no Did you review nursing and triage notes (agree or disagree)? Why? @ -agree Are old charts reviewed (outside hosp., previous admission, EMS record, old EKG, old radiological studies, urgent care reports/EKG's, jail records)? Report findings @ -yes Differential Diagnosis (chest pain, altered mental status, abdominal pain women, abdominal pain men, vaginal bleeding, weakness, fever, dyspnea, syncope, headache, dizziness, GI bleed, back pain, seizure, CVA, palpatations, mental health, musculoskeletal)? @ -prior EKG interpreted by me (3pts min.). @ -yes X-rays interpreted by me (1pt min.). @ -yes negative for acute disease CT interpreted by me (1pt min.). @ -no U/S interpreted by me (1pt. min.). @ -no What testing was considered but not performed or refused? (CT, X-rays, U/S, labs)? Why? @ -none What meds were considered but not given or refused? Why? @ -none Did you discuss the management of the patient with other professionals (professionals i.e. CAROL Gonzalez, TELEPHONE LINEMAN, lab, RT, psych nurse, social welfare research worker, [employer], teacher, planned giving officer, housing case manager)? Give summary @ -no Was smoking cessation discussed for >3mins.? @ -no Was critical care preformed (if so, how long)? @ -yes31 Were there social determinants of health that impacted care today? How? (Homelessness, low income, unemployed, alcoholism, drug addiction, tr ansportation, low edu. Level, literacy, decrease access to med. care, alf, rehab)? @ -none Was there de-escalation of care discussed even if they declined (Discuss DNR or withdrawal of care, Hospice)? DNR status @ -no What co-morbidities impacted this encounter? (DM, HTN, Smoking, COPD, CAD, Cancer, CVA, ARF, Chemo, Hep., AIDS, mental health diagnosis, sleep apnea, morbid obesity)? @ -none Was patient admitted / discharged? Hospital course, mention meds given and route, prescriptions, significant lab abnormalities, going to OR and other pertinent info. @ - 62 male to the emergency department for evaluation, patient here for evaluation of chest pain will be admitted for chest pain observation Admitted Undiagnosed new problem with uncertain prognosis? @ -no Drug Therapy requiring intensive monitoring for toxicity (Heparin, Nitro, Insulin, Cardizem)? @ -no Were any procedures done? @ -no Diagnosis/symptom? @ -Chest pain Acute, or Chronic, or Acute on Chronic? @ -Acute Uncomplicated (without systemic symptoms) or Complicated (systemic symptoms)? @ -Complicated Side effects of treatment? @ -no Exacerbation, Progression, or Severe Exacerbation? @ -exacerbation Poses a threat to life or bodily function? How? (Chest pain, [place], [place], pneumonia, PE, COPD, DKA, ARF, appy, cholecystitis, CVA, Diverticulitis, Homicidal, Suicidal, threat to staff... and all critical care pts) @ -yes w ACS Reevaluation #5: 01/17/23 04:44 Differential Chest Pain: Stable Angina, Unstable Angina, STEMI, NSTEMI Aortic Dissection, Pneumothorax, Musculoskeletal, Esophageal Spasm GERD, Cholecystitis, Pancreatitis, Zoster, this is not meant to be an all-inclusive list. - Consultations Consultation #1: Spoke with admitting physicians who will admit this patient Chest Pain MDM - MDM 62 male to the emergency department for evaluation, patient here for evaluation of chest pain will be admitted for chest pain observation Critical Care Time Critical Care Time: Yes Total Critical Care Time: 31 Disposition Clinical Impression: Chest pain, Unstable angina pectoris Disposition: ADMITTED IP TO THIS HOSP Condition: Undetermined Is patient prescribed a controlled substance at d/c from ED?: No Time of Disposition: 06:10
[2023-01-17 04:47] LABS: Partial Thromboplastin Time 23.5 sec (22.0-30.0); Prothrombin Time 10.7 sec (10.0-12.5)
--- NOTE | 2023-01-17 05:38 | XR ---
EXAMINATION TYPE: XR chest 2V DATE OF EXAM: 01/17/2023 COMPARISON: Chest x-ray February 05, 2021 HISTORY: Chest pain. TECHNIQUE: Frontal and lateral views of the chest are obtained. FINDINGS: Elevated left hemidiaphragm is redemonstrated. There is no suspicious new focal air space opacity, pleural effusion, or pneumothorax seen. The cardiac silhouette size is stable and within no rmal limits. The osseous structures are intact. IMPRESSION: No suspicious new acute cardiopulmonary process.
[2023-01-17] MEDS ORDERED: NALOXONE 0.4 MG/ML 1 ML VIAL IV PRN (06:08)
[2023-01-17] MEDS ORDERED: MORPHINE SULFATE 4 MG/ML SYRINGE IV PRN (06:08)
[2023-01-17] MEDS ORDERED: ONDANSETRON 4 MG/2 ML VIAL IVP PRN (06:08)
[2023-01-17] MEDS ORDERED: SODIUM CHLORIDE 0.9% 1,000 ML IV SCH (06:15)
[2023-01-17] MEDS ORDERED: REGADENOSON 0.4 MG/5 ML SYRINGE IV PRN (08:52)
[2023-01-17] MEDS ORDERED: AMINOPHYLLINE 500 MG/20 ML VIAL IV PRN (08:52)
[2023-01-17] MEDS ORDERED: CAFFEINE CITRATE 60 MG/3 ML VIAL IV PRN (08:52)
[2023-01-17] MEDS ORDERED: METOPROLOL TARTRATE 25 MG TAB PO SCH (09:00)
[2023-01-17] MEDS ORDERED: ASPIRIN 81 MG PO SCH (09:00)
[2023-01-17] MEDS ORDERED: amLODIPine 5 MG TAB PO SCH (09:00)
--- NOTE | 2023-01-17 09:57 | P.CRDCN ---
History of Present Illness History of present illness: HISTORY OF PRESENT ILLNESS: This is a 62-year-old male with a past medical history significant for hypertension and morbid obesity. Patient does not follow with a artificial limb maker. We have been asked to see the patient in consultation for chest pain. Patient examined at the bedside. Patient states he woke up at 3:00 this morning with chest discomfort. He states the pain felt like a stabbing sensation that radiated to his left arm. He also reports he had some numbness in his left arm. He reports having some mild discomfort in his back as well. He denied any sh ortness of breath or diaphoresis. He reports feeling lately lightheaded. He states the pain lasted till approximately 5 AM and then he decided come to the emergency room for further evaluation. The patient denies a history of coronary artery disease. He denies a history of hyperlipidemia or diabetes to his knowledge. He is a nonsmoker. He states that he is not very active at home at baseline. * EKG reveals mechanism with nonspecific ST-T wave changes * Chest xray negative for acute process * Laboratory data: Troponin negative 2 * Current home cardiac medications include amlodipine 5 mg daily, metoprolol tartrate 25 mg daily, and aspirin 81 mg daily * Most recent echocardiogram obtained in January 2021 revealed ejection fraction 55-60% * Patient underwent dobutamine stress test in January 2021 which was negative for ischemia * Cardiac catheterization history: Patient denies REVIEW OF SYSTEMS: At the time of my exam: CONSTITUTIONAL: Denies fever or chills. HEENT: Denies blurred vision, vision changes, or eye pain. Denies hemoptysis CARDIOVASCULAR: Denies chest pain. Denies orthopnea. Denies PND. Denies palpitations RESPIRATORY: Denies shortness of breath. GASTROINTESTINAL: Denies abdominal pain. Denies nausea or vomiting. HEMATOLOGIC: Denies bleeding disorders. GENITOURINARY: Denies any blood in urine. SKIN: Denies pruitis. Denies rash. PHYSICAL EXAM: VITAL SIGNS: Reviewed. GENERAL: Well-developed in no acute distress. HEENT: Head is normocephalic. Pupils are equal, round. Sclerae anicteric. Mucous membranes of the mouth are moist. Neck supple. No JVD or thyromegaly LUNGS: Respirations even and unlabored. Lungs essentially clear to auscultation bilaterally. HEART: Regular rate and rhythm. S1 and S2 heard. ABDOMEN: Soft. Nondistended. Nontender. EXTREMITIES: Normal range of motion. No clubbing or cyanosis. Peripheral pulses intact. No lower extremity edema NEUROLOGIC: Awake and alert. Oriented x 3. ASSESSMENT: Chest pain, troponins negative 2 Hypertension Morbid obesity Hyperglycemia, rule out diabetes PLAN: An acute coronary event has been ruled out Obtain 2-D echo to assess cardiac structure and function Resume home cardiac medications Obtain lipid panel and hemoglobin A1c Patient to undergo Lexiscan stress test today If negative, he may be discharged home from a cardiac standpoint Nurse practitioner note has been reviewed by physician. Signing provider agrees with the documented findings, assessment, and plan of care. Past Medical History Past Medical History: Chest Pain / Angina, Heart Failure, COPD, GERD/Reflux, Hyperlipidemia, Hypertension, Pneumonia, Renal Disease Additional Past Medical History / Comment(s): Pt states past "irregular heart beat that was treated by shocking my heart and then it went back to regular rhythm"/ states this was done years ago at [facility], nephrolithiasis/pt passed stone on his own, occasional back pain. History of Any Multi-Drug Resistant Organisms: None Reported Past Surgical History: Tonsillectomy Additional Past Surgical History / Comment(s): ?Cardioversion, colonoscopy Past Anesthesia/Blood Transfusion Reactions: No Reported Reaction Past Psychological History: No Psychological Hx Reported Smoking Status: Former smoker Past Alcohol Use History: None Reported Past Drug Use History: None Reported - Past Family History Father Family Medical History: Myocardial Infarction ([place]) Additional Family Medical History / Comment(s): Father of a [place] at the age of 60 yrs. Mother Family Medical History: Cancer Additional Family Medical History / Comment(s): Mother is . She had lung CA Medications and Allergies Home Medications Medication Instructions Recorded Confirmed Type Aspirin 81 mg PO DAILY 30 Days #30 tab 02/06/21 01/17/23 Rx Metoprolol Tartrate [Lopressor] 25 mg PO DAILY 30 Days #30 tab 02/06/21 01/17/23 Rx amLODIPine [Norvasc] 5 mg PO DAILY 30 Days #30 tab 02/06/21 01/17/23 Rx Allergies Allergy/AdvReac Type Severity Reaction Status Date / Time cat dander Allergy Dyspnea Verified 01/17/23 06:34 Physical Exam Vitals: Vital Signs Temp Pulse Resp BP Pulse Ox 01/17/23 06:21 98.2 F 01/17/23 06:00 97.9 F 80 19 121/77 98 01/17/23 05:00 73 18 121/71 100 01/17/23 04:39 77 19 01/17/23 04:36 98.2 F 79 18 131/71 98 01/17/23 03:34 98.1 F 79 18 147/75 95 Intake and Output 01/16/23 01/17/23 01/17/23 22:59 06:59 14:59 Other: Weight 161.025 kg Results 01/17/23 03:47 01/17/23 03:47 Cardiac Enzymes 01/17/23 01/17/23 Range/Units 03:47 03:47 AST 36 (17-59) U/L Troponin I <0.012 (0.000-0.034) ng/mL Coagulation 01/17/23 Range/Units 03:47 PT 10.7 (10.0-12.5) sec APTT 23.5 (22.0-30.0) sec CBC 01/17/23 Range/Units 03:47 WBC 11.2 H (3.8-10.6) k/uL RBC 4.45 (4.30-5.90) m/uL Hgb 13.5 (13.0-17.5) gm/dL Hct 41.2 (39.0-53.0) % Plt Count 274 (150-450) k/uL Comprehensive Metabolic Panel 01/17/23 Range/Units 03:47 Sodium 139 (137-145) mmol/L Potassium 4.1 (3.5-5.1) mmol/L Chloride 102 (98-107) mmol/L Carbon Dioxide 28 (22-30) mmol/L BUN 17 (9-20) mg/dL Creatinine 0.70 (0.66-1.25) mg/dL Glucose 135 H (74-99) mg/dL Calcium 9.0 (8.4-10.2) mg/dL AST 36 (17-59) U/L ALT 23 (4-49) U/L Alkaline Phosphatase 76 (38-126) U/L Total Protein 6.5 (6.3-8.2) g/dL Albumin 3.5 (3.5-5.0) g/dL Current Medications Generic Name Dose Route Start Last Admin Trade Name Freq PRN Reason Stop Dose Admin Sodium Chloride 1,000 mls @ 20 mls/hr 01/17/23 06:15 Saline 0.9% IV .Q24H [facility] Morphine Sulfate 4 mg 01/17/23 06:08 Morphine Sulfate 4 Mg/Ml Syringe IV Q4HR PRN Severe Pain (Scale 7 to 10) Naloxone HCl 0.2 mg 01/17/23 06:08 Naloxone 0.4 Mg/Ml 1 Ml Vial IV Q2M PRN Opioid Reversal Ondansetron HCl 4 mg 01/17/23 06:08 Ondansetron 4 Mg/2 Ml Vial IVP Q8HR PRN Nausea And Vomiting Intake and Output 01/16/23 01/17/23 01/17/23 22:59 06:59 14:59 Other: Weight 161.025 kg 01/17/23 03:47 01/17/23 03:47
--- NOTE | 2023-01-17 12:21 | CA ---
Lexiscan Nuclear Stress Test Report Name: Quinn Diaz Exam Date: 01/17/2023 10:52 Exam Location: [place] Stress Ht (in): 70 Wt (lb): 355 BSA: 2.66 Ordering Phys: Debbie Sow Referring Phys: char,, Technologist: Orlando Obregon Age: 62 Gender: M : 1960 Procedure CPT: Indications: Reflex order-Stress test ICD-10 Codes: Patient History: Medications: see chart Meds past 24 hrs: Pretest Chest Pain: STRESS TEST Lexiscan Protocol Exercise Duration (min:sec): 02:[address] Depressions (mm): Angina Score: [place] Score: Resting HR (bpm): 75 Peak HR (bpm): 100 Resting BP (mmHg): 128 / 77 Peak BP (mmHg): 131 / 77 MPHR: 158 Target HR: 134 % MPHR: 63 METS: 1.0 Total Dose: Peak Dose: Atropine: Double Product: 16665 BP Response: Stress Termination: PROTOCOL COMPLETE Stress Symptoms: CHEST PAIN, FELT BETTER BY THE END Stress Summary: ECG ANALYSIS Resting ECG: Stress ECG: CONCLUSIONS Nondiagnostic electrocardiogram stress testing Dr. Franko Gomez MD (Electronically Signed) Final Date: 17 January 2023 12:20
--- NOTE | 2023-01-17 12:24 | CA ---
Transthoracic Echo Report Name: Quinn Diaz Age: 62 Gender: M : 1960 Exam Date: 01/17/2023 12:11 Exam Location: [place] Echo Ht (in): 70 Wt (lb): 355 Ordering Physician: Debbie Sow Attending/Referring Phys: [id number], Juanjose Front Facer Marely Goldberg [facility] Procedure CPT: Indications: CP Cardiac Hx: Technical Quality: Technically difficult study Contrast 1: Definity Total Dose (mL): 6 Contrast 2: Total Dose (mL): MEASUREMENTS (Male / Female) Normal Values 2D ECHO LV Diastolic Diameter PLAX 3.7 cm 4.2 - 5.9 / 3.9 - 5.3 cm LV Systolic Diameter PLAX 3.0 cm IVS Diastolic Thickness 1.2 cm 0.6 - 1.0 / 0.6 - 0.9 cm LVPW Diastolic Thickness 0.9 cm 0.6 - 1.0 / 0.6 - 0.9 cm LV Relative Wall Thickness 0.6 LA Volume 72.1 cm??? 18 - 58 / 22 - 52 cm??? LA Volume Index 24.8 cm???/m??? 16 - 28 cm???/m??? Ascending Aorta Diameter 3.5 cm M-MODE Aortic Root Diameter MM 2.9 cm LA Systolic Diameter MM 4.2 cm LA Ao Ratio MM 1.5 AV Cusp Separation MM 2.1 cm DOPPLER AV Peak Velocity 123.8 cm/s AV Peak Gradient 6.1 mmHg AV Mean Velocity 92.3 cm/s AV Mean Gradient 3.7 mmHg AV Velocity Time Integral 27.7 cm LVOT Peak Velocity 107.2 cm/s LVOT Peak Gradient 4.6 mmHg LVOT Velocity Time Integral 24.5 cm Mitral E Point Velocity 46.2 cm/s Mitral A Point Velocity 80.2 cm/s Mitral E to A Ratio 0.6 MV Deceleration Time 228.4 ms LV E' Lateral Velocity 12.1 cm/s Mitral E to LV E' Lateral Ratio 3.8 LV E' Septal Velocity 7.4 cm/s Mitral E to LV E' Septal Ratio 6.3 Right Atrial Pressure 8.0 mmHg FINDINGS Left Ventricle Mildly increased septal wall thickness. Left ventricular cavity size normal. Low normal left ventricular systolic function with no obvious regional wall motion abnormalities. Left ventricular ejection fraction is estimated at 50%. Right Ventricle Right ventricle at upper limits of normal. Unable to estimate the right ventricular systolic pressure. Right Atrium Mild right atrial dilatation. Left Atrium Moderately increased left atrial volume. Mildly increased left atrial area. Mitral Valve Mitral valve thickened. Mild mitral regurgitation. Aortic Valve Aortic valve not well visualized. No aortic valve stenosis or regurgitation. Tricuspid Valve Tricuspid valve not well visualized. Pulmonic Valve Pulmonic valve not well visualized. Pericardium No pericardial effusion. Echo free space anterior to the right ventricle likely represents a fat pad. Aorta Normal size aortic root and proximal ascending aorta. CONCLUSIONS Low-normal LV systolic function with an EF of 50% Previewed by: Dr. Franko Gomez MD (Electronically Signed) Final Date: 17 January 2023 12:23
--- NOTE | 2023-01-17 12:43 | NM ---
EXAMINATION TYPE: NM stress lexiscan cardiolite DATE OF EXAM: 01/17/2023 COMPARISON: 03/16/2013 CLINICAL INDICATION: Male, 62 years old with history of CP; TECHNIQUE: After the intravenous administration of 11.1 mCi Tc 99m Sestamibi - Cardiolite resting SP ECT images acquired 70 minutes post injection. The patient received 0.4mg Lexiscan, 26.8 mCi Tc 99m Sestamibi - Stress images obtained [address] injection FINDINGS: Review of stress and rest SPECT images demonstrates a large fixed defect involving the inferior wall. On rest, additional defect involving the mid to apical anteroseptal wall that does not persist on st ress. Findings suggest attenuation artifact. Gated analysis shows normal wall motion with an estimate d left ventricular ejection fraction of 64 %. TID is calculated at 0.79, within normal limits. IMPRESSION: Large fixed defect along the inferior wall. Correlate for possible old infarct. Prominent diaphragmat ic attenuation artifact is favored. No scintigraphic evidence for inducible ischemia
[2023-01-17 15:04] VITALS: BP 135/79; PULSE 74; RESP 22; TEMP 97.8
[2023-01-17 16:03] LABS: Chol/HDL Ratio 3.71 Ratio; LDL Cholesterol,Calculated 110.3 mg/dL (0.0-131.0); VLDL Calculation 19.68 mg/dL (5.00-40.00)
== END 2023-01-17 15:48 | disposition home or self-care (01) ==
LOC: EC 03:32 → 6NMEDSUR 06:08
PROVIDERS: ADMIT Hospitalist; ATTEND Hospitalist
DX: R07.89 Other chest pain (principal); R73.9 Hyperglycemia, unspecified; I11.0 Hypertensive heart disease with heart failure; I50.9 Heart failure, unspecified; J44.9 Chronic obstructive pulmonary disease, unspecified; E66.01 Morbid (severe) obesity due to excess calories; Z68.43 Body mass index [BMI] 50.0-59.9, adult; M79.602 Pain in left arm; R20.0 Anesthesia of skin; R61 Generalized hyperhidrosis; E78.5 Hyperlipidemia, unspecified; K21.9 Gastro-esophageal reflux disease without esophagitis; Z79.82 Long term (current) use of aspirin; Z79.899 Other long term (current) drug therapy; Z91.048 Other nonmedicinal substance allergy status; Z87.891 Personal history of nicotine dependence; Z87.442 Personal history of urinary calculi; Z87.01 Personal history of pneumonia (recurrent); Z98.890 Other specified postprocedural states; Z82.49 Family history of ischemic heart disease and other diseases of the circulatory system; Z80.1 Family history of malignant neoplasm of trachea, bronchus and lung
CPT/HCPCS: 99291; 36415; 93005; 93017; 93306; 80061; 80053; 83735; 84484; 85025; 85610; 85730; 83036; 71046; 78452; G0378; A9500; Q9957; J2785